=== PATIENT | female | born 1960 | race Caucasian/White ===

== ENCOUNTER → 2016-09-09 | Outpatient (CLI) | payer OTHER | LOC: RAD 11:17 | PROVIDERS: ATTEND Psychiatry & Neurology Neurology | DX: G37.8 Other specified demyelinating diseases of central nervous system (principal) | CPT/HCPCS: 72146 ==

== ENCOUNTER → 2017-01-22 | Outpatient (CLI) | payer OTHER ==
--- NOTE | 2017-01-22 11:09 | WOMENS IMAGING REPORT ---
EXAM DESCRIPTION: RIGHT SCREENING MAMMO W/CAD COMPLETED DATE/TIME: 01/22/2017 10:34 am REASON FOR STUDY: ROUTINE SCREENING Z12.31 ENCNTR SCREEN MAMMOGRAM FOR MALIGNANT NEOPLASM OF JOCE COMPARISON: Annual priors dating back to January 2009. TECHNIQUE: Standard craniocaudal and mediolateral oblique views of the breast recorded using digital acquisition. LIMITATIONS: None. FINDINGS: BREAST: right No masses, calcifications or architectural distortion. No areas of suspicion. Read with the assistance of CAD. .[facility] - R2 Cenova Version 1.3 .[facility] - R2 Cenova Version 1.3 .[facility] - R2 Cenova Version 2.4 .[facility] - R2 Cenova Version 2.4 .[facility] - R2 Roll Edge Machine Operator Version 9.2 IMPRESSION: NORMAL MAMMOGRAM. BIRADS 1. BREAST DENSITY: b. There are scattered areas of fibroglandular density. BIRAD: 1 NEGATIVE RECOMMENDATION: RECOMMENDATION: ROUTINE SCREENING. COMMENT: The patient has been notified of the results by letter per SA requirements. Additional no tification policies are in place for contacting patient with suspicious or incomplete findings. Quality ID #225: The [employer] recommends an annual screening mammogram for women aged 40 years or over. This facility utilizes a reminder system to ensure that all patients receive reminder letters, and/or direct phone calls for appointments. This includes reminders for routine scr eening mammograms, diagnostic mammograms, or other Breast Imaging Interventions when appropriate. Th is patient will be placed in the appropriate reminder system. The [employer] (ACR) has developed recommendations for screening MRI of the breast s in certain patient populations, to be used in conjunction with mammography. Breast MRI surveillance may be appropriate for women with more than 20% lifetime risk of developing breast cancer as determi tam by genetic testing, significant family history of the disease, or history of mantle radiation for Hodgkins Disease. ACR Practice Guidelines 2008. TECHNICAL DOCUMENTATION: FINDING NUMBER: (1) ASSESSMENT: (1) JOB ID: [id number] [employer]- All Rights Reserved
== END ==
LOC: WI 10:16
PROVIDERS: ATTEND Family Medicine
DX: Z12.31 Encounter for screening mammogram for malignant neoplasm of breast (principal)
CPT/HCPCS: G0202-52

== ENCOUNTER → 2017-02-12 | Outpatient (CLI) | payer OTHER ==
--- NOTE | 2017-02-12 13:22 | ST Modified Barium Swallow ---
Medical Diagnoses - Medical Diagnoses Medical Diagnosis Description & ICD-10 Code(s): Dysphagia R13.10 Other Medical Diagnoses/Co-Morbidities: Heart valve replaced, history of breast cancer. ST Modified Barium Swallow - General Date: 02/12/17 Referring Physician: Dr. Miguel Howell Risks/Precautions: Falls, Aspiration Date of Onset: 10/29/16 Reason for Referral: dysphagia R13.10 - History History obtained from: Patient -: Medical - Patient reports swallowing issues began in October. Patient reports would be harder to swallow and getting worse. Reports in last few weeks it feels like something is hung in throat (indicates level of larynx) and that it will be hard to swallow. Patient reports sometimes "I feel like I'm trying to choke" but that most of the time something is just sticking. Does report feeling like "cutting off airway". Reports recently had plate of barbecue and it took an hour & 45 minutes to eat. Patient reports voice has been raspy & hoarse for about a year. Patient reports ENT has determined nothing is wrong with vocal cords. Reports gait has been affected since July. Patient reports has myopathy and physicians are continuing to look at causes. Patient is to have repeat MRI. Medications: Coumadin, diltiazem, baclofen, D-Amphetamine salt combo, Aspirin. Allergies: Codeine, Shrimp, Crestor. - Functional Status Prior Functional Status: INDEPENDENT: community mobility, communication, feeding Current Functional Limitations: community mobility, communication, feeding - Subjective Patient/caregiver goal(s): improve intake, better swallow Cognitive-Linguistic Function: Functional Speech Intelligibility: Moderately dysarthric - hoarse vocal quality Current Nutritional Means: PO - regular diet Current symptoms: Poor intake, c/o Globus sensation, other - slow eating Pain: 0/5 - Objective Assessment: Upright, Left Lateral - Food Trials Used Food trials used: Thin liquids, Pureed, Soft solids The patient: Was Able to Self Feed, via cup, via spoon, via straw - Oral-Motor Skills Dentition: Partial Velo-pharyngeal function: Not assessed - Assessment Oral prep: Mildly Impaired Labial closure: Adequate Leakage: None Mastication: Lengthy Lingual Movement: Weak Oral stage: Mildly Impaired - Pharyngeal Stage Decreased laryngeal elevation: No Reduced Velopharyngeal Closure: no Reduced pressure generation: Yes - mildly reduced tongue-based retraction: Yes - mildly Pre-swallow pooling in valleculae: None Pre-Swallow pooling in pyriforms: None Reduced Thyro-Hyoid approximation: No Reduced epiglottic excursion: No Reduced pharyngeal peristalsis/contraction: No Post-swallow residulas vallecular: None Post-Swallow residuals in pyriforms: None - Esophageal Stage Esophageal Stage: Patient had barium swallow for esophageal assessment after MBSS. - Fall Risk Assessment Medications/Conditions that increase fall risks include: Antidepressants, sedatives, anti-arrhythmic, diuretic, benzodiazipenes, neuroleptics. BP regulation problems, cardiac problems, balance or gait deficits, neurological problems. Is patient considered at risk for falls: yes Fall Risk Actions Taken: Pt physician notified - Behavioral Observations During evaluation process patient: was pleasant, was cooperative, able to answer questions - Treatment / Educational Needs: Treatment/Education Needs: Treatment consisted of patient education on the role of the Speech Pathologist. Patient's plan of care and golas were communicated as well as scheduling and attendance policies. Recommendations for initial home program were shared. Patient demonstrated understanding and verbalized agreement. Initial home program recommendations: patient asked for recommendation regarding fatigue with eating. STAFF NURSE ANESTHETIST recommended that later in day or on bad days when patient struggles to eat & has to eat slower, that she try softer foods that will be easier to eat. STAFF NURSE ANESTHETIST did recommend against thickening liquids at this time as patient does not have any aspiration or penetration and thickener may increase risk of residuals or effort required to swallow. - Impression/Summary Laryngeal Penetration: No Tracheal Aspiration: no Patient presents with: Oral stage dysphagia - mild Risk of Aspiration: Mild - given presentation at time of study Risk of nutritional compromise: Moderate Evaluation and Findings: Swallow is safe and effective, however mild impairments were observed in oral stage for manipulation of bolus and mastication time. Patient reports that these will worsened across day & that some days are worse than others. At this time, recommend patient continue current diet. Patient may wish to eat softer foods that require less chewing when fatigued. Patient may benefit from further speech therapy for education on strategies and strengthening of oral musculature. Physician may wish to wait on speech therapy until further assessments are completed to aid in determining if rehab will be beneficial to patient. - Recommendations Solid diet recommendations: Regular Liquid Diet Modification: Thin Strict aspiration precautions: Yes Pt/Family education and followup with MD: Yes Information, Precautions and Recommendations: Patient (Verbal), Family Member ( Verbal) - Time Total Time: 20 - Plan of Care Strategies to optimize patient understanding include:: ongoing assessment of educational needs, implementation of educational strategies, and re-education. - - -: Thank you for the opportunity to work with this patient and his/her family. Should you have any questions about this patient's plan or progress, I can be reached at [phone]. Charge G Code? - - -: No
--- NOTE | 2017-02-12 16:25 | RADIOLOGY REPORT (SQ) ---
EXAM DESCRIPTION: BARIUM SWALLOW PHARYNX ONLY COMPLETED DATE/TIME: 02/12/2017 2:06 pm REASON FOR STUDY: DYSPHAGIA (R13.10) R13.10 DYSPHAGIA, UNSPECIFIED COMPARISON: None. TECHNIQUE: Under fluoroscopic guidance, patient ingested effervescent granules followed by thick and thin barium. Fluoroscopic spot images and routine radiographic images acquired and stored on PACS. 12 MM BARIUM TABLET GIVEN: Yes. No significant delay in passage. LIMITATIONS: None. FLUOROSCOPY TIME: FLUORO TIME: 42 seconds 9 images saved to PACS. FINDINGS: NEUROMUSCULAR COORDINATION OF SWALLOW: Normal. No aspiration. ESOPHAGEAL MOTILITY: Tertiary contractions mid and distal esophagus. ESOPHAGEAL MUCOSA: Normal mucosa without masses or ulceration. GASTRO-ESOPHAGEAL JUNCTION: Sliding hiatal hernia. No reflux observed. NON-GI TRACT STRUCTURES: No significant finding. OTHER: No other significant finding. IMPRESSION: 1. Sliding hiatal hernia. No stricture. No reflux observed. 2. Dysmotility. COMMENT: Quality ID 145: Final reports for procedures using fluoroscopy that document radiation exp osure indices, or exposure time and number of fluorographic images (if radiation exposure indices are not available) TECHNICAL DOCUMENTATION: JOB ID: [id number] [facility]- All Rights Reserved
--- NOTE | 2017-02-12 16:38 | RADIOLOGY REPORT (SQ) ---
EXAM DESCRIPTION: COOKIE SWALLOW COMPLETED DATE/TIME: 02/12/2017 2:06 pm REASON FOR STUDY: DYSPHAGIA (R13.10) R13.10 DYSPHAGIA, UNSPECIFIED FOOD IN PHARYNX CAUSING OTHER IN JURY, SEQUELA T17.228S COMPARISON: Barium swallow performed same day 02/12/2017 TECHNIQUE: Videofluoroscopic swallowing examination was performed in conjunction with speech patholo gy. Videofluoroscopic imaging was obtained and reviewed and these are the findings: RADIATION DOSE: Total fluoroscopy time: 1 minutes 3 seconds 1 fluoroscopy image saved to PACS. LIMITATIONS: None FINDINGS: The patient was brought into the fluoro room and placed upright on a modified barium swall ow chair. The patient was then given multiple consistencies mixed with barium to swallow under live fluoroscopic video guidance. According to the Speech Pathologist there was no laryngeal penetration and no tracheal aspiration. Mild oral and pharyngeal phase delay noted, with premature spillage over the base of tongue into the vallecula and piriform sinuses prior to swallow initiation. No signific ant post swallow residual seen. Please see speech pathology report for further details and recommend ations. IMPRESSION: NO EVIDENCE OF LARYNGEAL PENETRATION OR TRACHEAL ASPIRATION.PLEASE SEE SPEECH PATHOLOGIS T REPORT FOR OTHER FINDINGS AND RECOMMENDATIONS. COMMENT: Quality ID 145: Final reports for procedures using fluoroscopy that document radiation exp osure indices, or exposure time and number of fluorographic images (if radiation exposure indices are not available) TECHNICAL DOCUMENTATION: JOB ID: [id number] [employer]- All Rights Reserved
== END ==
LOC: RAD 13:02
PROVIDERS: ATTEND Otolaryngology
DX: R13.10 Dysphagia, unspecified (principal)
CPT/HCPCS: 74210; 74230

== ENCOUNTER → 2017-08-12 | Outpatient (CLI) | payer OTHER ==
--- NOTE | 2017-08-13 08:50 | RADIOLOGY REPORT (SQ) ---
EXAM DESCRIPTION: MRI RT LOWER EXTREMITY WITHOUT COMPLETED DATE/TIME: 08/12/2017 5:09 pm REASON FOR STUDY: M62.562 COMPARISON: None. FINDINGS: Please see combined report for the bilateral lower extremity MRI. TECHNICAL DOCUMENTATION: JOB ID: [id number] Reading location - IP/workstation name: [email or web address]
--- NOTE | 2017-08-13 08:50 | RADIOLOGY REPORT (SQ) ---
EXAM DESCRIPTION: MRI LT LOWER EXTREMITY WITHOUT COMPLETED DATE/TIME: 08/12/2017 5:09 pm REASON FOR STUDY: M62.562 MUSCLE WASTING AND ATROPHY, NEC, LEFT LOWER LEG M62.561 MUSCLE WAST M62.56 1 MUSCLE WASTING AND ATROPHY, NEC, RIGHT LOWER LEG M62.562 MUSCLE WASTING AND ATROPHY, NEC, LEFT LO WER LEG COMPARISON: None. TECHNIQUE: Multiplanar imaging of the right and left legs to include fat and fluid sensitive sequenc es. Field of view includes from knee to ankle without high-resolution of either these joints. LIMITATIONS: No technical limitations appreciated. FINDINGS: RIGHT BONE MARROW: No marrow signal alteration. No marrow replacement or marrow edema. No evidence for os teomyelitis, fracture or suspicious bone lesion. SOFT TISSUES: No drainable fluid collections or soft tissue mass. Symmetric volume and signal in the visualized muscles. OTHER: No other significant finding. LEFT BONE MARROW: No marrow signal alteration. No marrow replacement or marrow edema. No evidence for os teomyelitis, fracture or suspicious bone lesion. No cortical break through. SOFT TISSUES: No drainable fluid collections or soft tissue mass. Symmetric volume and signal in the visualized muscles. Mild deep subcutaneous anterior strandy edema and fluid. OTHER: No other significant finding. IMPRESSION: 1. Other than mild left subcutaneous edema, normal MRI appearance of the bilateral legs. No mass or drainable fluid or asymmetry in the musculature. Bones look normal. TECHNICAL DOCUMENTATION: JOB ID: [id number] [employer]- All Rights Reserved Reading location - IP/workstation name: [email or web address]
== END ==
LOC: RAD 15:51
PROVIDERS: ATTEND Family Medicine
DX: M62.562 Muscle wasting and atrophy, not elsewhere classified, left lower leg (principal); M62.561 Muscle wasting and atrophy, not elsewhere classified, right lower leg

== ENCOUNTER → 2017-12-03 | Outpatient (CLI) | payer OTHER ==
[2017-12-03 13:59] LABS: ABSOLUTE BASOPHILS # (AUTO) 0.1 10^3/uL (0.0-0.2); ABSOLUTE EOSINOPHILS # (AUTO) 0.1 10^3/uL (0.0-0.6); ABSOLUTE LYMPHOCYTES (AUTO) 2.2 10^3/uL (0.5-4.7); ABSOLUTE MONOCYTES (AUTO) 0.5 10^3/uL (0.1-1.4); ABSOLUTE NEUT (AUTO) 4.2 10^3/uL (1.7-8.2); BASOPHILS % (AUTO) 0.8 % (0-2); EOSINOPHILS % (AUTO) 1.8 % (0-6); HEMATOCRIT 43.4 % (36.0-47.0); HEMOGLOBIN 14.9 g/dL (12.0-15.5); LYMPHOCYTES % (AUTO) 31.4 % (13-45); MEAN CORPUSCULAR HGB CONC 34.2 g/dL (32.0-36.0); MEAN CORPUSCULAR VOLUME 88 fl (80-97); MONOCYTES % (AUTO) 6.6 % (3-13); PLATELET COUNT 256 10^3/uL (150-450); RED BLOOD COUNT 4.95 10^6/uL (3.72-5.28); RED CELL DISTRIBUTION WIDTH 14.1 % (11.5-14.0); SEGMENTED NEUTROPHILS % (AUTO) 59.4 % (42-78); TOTAL CELLS COUNTED % (AUTO) 100 %; WHITE BLOOD COUNT 7.1 10^3/uL (4.0-10.5)
[2017-12-03 14:22] LABS: ALANINE AMINOTRANSFERASE 47 U/L (9-52); ALBUMIN 4.2 g/dL (3.5-5.0); ALKALINE PHOSPHATASE 103 U/L (38-126); ANION GAP 10 (5-19); ASPARTATE AMINO TRANSFERASE 43 U/L (14-36); BILIRUBIN,DIRECT 0.3 mg/dL (0.0-0.4); BILIRUBIN,TOTAL 0.3 mg/dL (0.2-1.3); BLOOD UREA NITROGEN 15 mg/dL (7-20); CALCIUM 9.2 mg/dL (8.4-10.2); CARBON DIOXIDE 27 mmol/L (22-30); CHLORIDE 105 mmol/L (98-107); GLUCOSE 95 mg/dL (75-110); POTASSIUM 4.7 mmol/L (3.6-5.0); TOTAL PROTEIN 6.9 g/dL (6.3-8.2)
--- NOTE | 2017-12-03 15:08 | RADIOLOGY REPORT (SQ) ---
EXAM DESCRIPTION: CHEST 2 VIEWS COMPLETED DATE/TIME: 12/03/2017 2:02 pm REASON FOR STUDY: COUGH (R05) COMPARISON: Chest films 08/22/2012, 01/14/2013, 03/21/2013 EXAM PARAMETERS: NUMBER OF VIEWS: two views TECHNIQUE: Digital Frontal and Lateral radiographic views of the chest acquired. RADIATION DOSE: NA LIMITATIONS: none FINDINGS: LUNGS AND PLEURA: No opacities, masses or pneumothorax. No pleural effusion. MEDIASTINUM AND HILAR STRUCTURES: No masses or contour abnormalities. HEART AND VASCULAR STRUCTURES: Heart normal size. No evidence for failure. BONES: Osteoporotic HARDWARE: Mitral valve replacement. Surgical clips in the anterior mediastinum, left axilla, anterio r abdominal wall. Clips right upper quadrant post cholecystectomy. OTHER: No other significant finding. IMPRESSION: Mitral valve replacement. No acute infiltrates. TECHNICAL DOCUMENTATION: JOB ID: [id number] [employer]- All Rights Reserved Reading location - IP/workstation name: [email or web address]
== END ==
LOC: RAD 13:17
PROVIDERS: ATTEND Family Medicine
DX: R05 Cough (principal); R19.7 Diarrhea, unspecified; Z95.2 Presence of prosthetic heart valve
CPT/HCPCS: 36415; 71046; 80053; 85025; 87045; 87177; 87205

== ENCOUNTER → 2018-01-07 | Outpatient (CLI) | payer OTHER ==
--- NOTE | 2018-01-07 13:20 | RADIOLOGY REPORT (SQ) ---
EXAM DESCRIPTION: CT ABD/PELVIS WITH IV ORAL COMPLETED DATE/TIME: 01/07/2018 11:03 am REASON FOR STUDY: RECTAL BLEEDING/NAUSEA W/ VOMITING K62.5 HEMORRHAGE OF ANUS AND RECTUM R11.2 RONNY SEA WITH VOMITING, UNSPECIFIED K21.9 GASTRO-ESOPHAGEAL REFLUX DISEASE WITHOUT ESOPHAGITIS COMPARISON: None. TECHNIQUE: CT scan of the abdomen and pelvis performed using helical scanning technique with oral co ntrast and dynamic intravenous contrast injection. Images reviewed with lung, soft tissue, and bone windows. Reconstructed coronal and sagittal MPR images reviewed. Delayed images for evaluation of the urinary system also acquired. All images stored on PACS. All CT scanners at this facility use dose modulation, iterative reconstruction, and/or weight based d osing when appropriate to reduce radiation dose to as low as reasonably achievable (ALARA). [facility]: Dose Right [facility]: CareDose [facility]: Dose Right [facility]: Teradose 4D [facility]: [employer] CONTRAST TYPE AND DOSE: contrast/concentration: Isovue 350.00 mg/ml; Total Contrast Delivered: 83.0 ml; Total Saline Delivered: 68.0 ml RENAL FUNCTION: Creatinine 0.6. RADIATION DOSE: CT Rad equipment meets quality standard of care and radiation dose reduction techniq ues were employed. CTDIvol: 8.6 - 9.7 mGy. DLP: 931 mGy-cm.. LIMITATIONS: None. FINDINGS: LOWER CHEST: No significant findings. No nodules or infiltrates. LIVER: Normal size. No masses. No dilated ducts. SPLEEN: Normal size. No focal lesions. PANCREAS: No masses. No significant calcifications. No adjacent inflammation or peripancreatic fluid collections. Pancreatic duct not dilated. GALLBLADDER: Surgically absent. ADRENAL GLANDS: No significant masses or asymmetry. RIGHT KIDNEY AND URETER: No solid masses. No significant calcifications. No hydronephrosis or hyd roureter. LEFT KIDNEY AND URETER: No solid masses. No significant calcifications. No hydronephrosis or hydr oureter. AORTA AND VESSELS: No aneurysm. No dissection. Renal arteries, SMA, celiac without stenosis. RETROPERITONEUM: No retroperitoneal adenopathy, hemorrhage or masses. BOWEL AND PERITONEAL CAVITY: Suboptimal evaluation of the stomach due to lack of distention. Scatter ed diverticuli in the descending and sigmoid colon. No masses or inflammatory changes. No free fluid or peritoneal masses. APPENDIX: Normal. PELVIS: No mass. No free fluid. Normal bladder. ABDOMINAL WALL: No masses. No hernias. Surgical changes on the left secondary to TRAM flap. BONES: No significant or acute findings. OTHER: No other significant finding. IMPRESSION: COLONIC DIVERTICULOSIS. NO CT FINDINGS OF DIVERTICULITIS. NO OTHER SIGNIFICANT OR ACUT E FINDING IN THE ABDOMEN OR PELVIS ON CT SCAN WITH IV CONTRAST. TECHNICAL DOCUMENTATION: JOB ID: [id number] Quality ID # 436: Final reports with documentation of one or more dose reduction techniques (e.g., Au tomated exposure control, adjustment of the mA and/or kV according to patient size, use of iterative reconstruction technique) 2010 [employer]- All Rights Reserved Reading location - IP/workstation name: [email or web address]
== END ==
LOC: RAD 10:18
PROVIDERS: ATTEND Internal Medicine Gastroenterology
DX: K62.5 Hemorrhage of anus and rectum (principal); R11.2 Nausea with vomiting, unspecified; K21.9 Gastro-esophageal reflux disease without esophagitis; K59.1 Functional diarrhea; K57.30 Diverticulosis of large intestine without perforation or abscess without bleeding
CPT/HCPCS: 74177; 82565

== ENCOUNTER → 2018-04-25 | Outpatient (CLI) | payer OTHER ==
[2018-04-25 14:02] LABS: ABSOLUTE BASOPHILS # (AUTO) 0.1 10^3/uL (0.0-0.2); ABSOLUTE EOSINOPHILS # (AUTO) 0.1 10^3/uL (0.0-0.6); ABSOLUTE LYMPHOCYTES (AUTO) 2.1 10^3/uL (0.5-4.7); ABSOLUTE MONOCYTES (AUTO) 0.5 10^3/uL (0.1-1.4); ABSOLUTE NEUT (AUTO) 4.1 10^3/uL (1.7-8.2); BASOPHILS % (AUTO) 0.8 % (0-2); EOSINOPHILS % (AUTO) 0.9 % (0-6); HEMATOCRIT 44.3 % (36.0-47.0); HEMOGLOBIN 15.3 g/dL (12.0-15.5); LYMPHOCYTES % (AUTO) 31.7 % (13-45); MEAN CORPUSCULAR HEMOGLOBIN 30.6 pg (27.0-33.4); MEAN CORPUSCULAR HGB CONC 34.6 g/dL (32.0-36.0); MEAN CORPUSCULAR VOLUME 89 fl (80-97); MONOCYTES % (AUTO) 6.7 % (3-13); PLATELET COUNT 239 10^3/uL (150-450); RED CELL DISTRIBUTION WIDTH 14.4 % (11.5-14.0); SEGMENTED NEUTROPHILS % (AUTO) 59.9 % (42-78); TOTAL CELLS COUNTED % (AUTO) 100 %; WHITE BLOOD COUNT 6.8 10^3/uL (4.0-10.5)
[2018-04-25 14:20] LABS: ALANINE AMINOTRANSFERASE 27 U/L (9-52); ALBUMIN 4.3 g/dL (3.5-5.0); ALKALINE PHOSPHATASE 90 U/L (38-126); ANION GAP 10 (5-19); ASPARTATE AMINO TRANSFERASE 28 U/L (14-36); BILIRUBIN,DIRECT 0.3 mg/dL (0.0-0.4); BILIRUBIN,TOTAL 0.6 mg/dL (0.2-1.3); BLOOD UREA NITROGEN 9 mg/dL (7-20); CALCIUM 9.9 mg/dL (8.4-10.2); CARBON DIOXIDE 32 mmol/L (22-30); CHLORIDE 102 mmol/L (98-107); GLUCOSE 63 mg/dL (75-110); POTASSIUM 4.1 mmol/L (3.6-5.0); SODIUM 144.1 mmol/L (137-145); TOTAL PROTEIN 7.1 g/dL (6.3-8.2)
== END ==
LOC: OD 12:39
PROVIDERS: ATTEND Family Medicine
DX: E83.42 Hypomagnesemia (principal); E53.9 Vitamin B deficiency, unspecified; Z79.01 Long term (current) use of anticoagulants; Z79.899 Other long term (current) drug therapy
CPT/HCPCS: 36415; 80053; 82607; 83735; 85025

== ENCOUNTER → 2018-10-06 | Outpatient (CLI) | payer OTHER ==
--- NOTE | 2018-10-06 08:33 | WOMENS IMAGING REPORT ---
EXAM DESCRIPTION: U/S ABDOMEN LIMITED COMPLETED DATE/TIME: 10/06/2018 7:42 am REASON FOR STUDY: R10.10 UPPER ABDOMINAL PAIN R10.10 UPPER ABDOMINAL PAIN, UNSPECIFIED COMPARISON: CT abdomen pelvis 01/07/2018 TECHNIQUE: Dynamic and static grayscale images acquired of the abdomen and recorded on PACS. Additio nal selected color Doppler and spectral images recorded. LIMITATIONS: Midline bowel gas FINDINGS: PANCREAS: Midline pancreas unremarkable LIVER: No masses. Echotexture normal. LIVER VASCULATURE: Normal directional flow of the main portal vein and hepatic veins. GALLBLADDER: No stones. Normal wall thickness. No pericholecystic fluid. ULTRASOUND-DETECTED MARK'S SIGN: Negative. INTRAHEPATIC DUCTS AND COMMON DUCT: No intrahepatic biliary ductal dilatation. Common bile duct at t he jamal hepatis is 10 mm in diameter. Distal most common duct not well seen due to duodenum gas. C holedocholithiasis could not entirely be excluded. INFERIOR VENA CAVA: Normal flow. AORTA: No aneurysm. RIGHT KIDNEY: Normal size. Normal echogenicity. No solid or suspicious masses. No hydronephrosis. No calcifications. PERITONEAL AND RIGHT PLEURAL SPACE: No ascites or effusions. OTHER: No other significant findings. IMPRESSION: Post cholecystectomy Mild prominence of the extrahepatic common bile duct likely due to cholecystectomy. Distal most comm on duct not well seen. Distal common duct stones could not entirely be excluded TECHNICAL DOCUMENTATION: JOB ID: [id number] [employer]- All Rights Reserved Reading location - IP/workstation name: [email or web address]
== END ==
LOC: WI 07:03
PROVIDERS: ATTEND Family Medicine
DX: R10.10 Upper abdominal pain, unspecified (principal)
CPT/HCPCS: 76705

== ENCOUNTER → 2019-02-15 | Outpatient (CLI) | payer OTHER ==
--- NOTE | 2019-02-15 17:09 | WOMENS IMAGING REPORT ---
EXAM DESCRIPTION: 3D SCREENING MAMMO RIGHT COMPLETED DATE/TIME: 02/15/2019 8:36 am REASON FOR STUDY: Z12.31 ENCOUNTER FOR SCREENING MAMMOGRAM FOR MALIGNANT NEOPLASM OF BREAST Z12.31 ENCNTR SCREEN MAMMOGRAM FOR MALIGNANT NEOPLASM OF JOCE COMPARISON: Multiple since 2008 EXAM PARAMETERS: Standard craniocaudal and mediolateral oblique views of the breast recorded using d igital acquisition and breast tomosynthesis. Read with the assistance of CAD. .[facility] - [employer] Hearing Consultant Version 9.2 LIMITATIONS: None. FINDINGS: BREAST LATERALITY: right No suspicious masses, suspicious calcifications or architectural distortion. No areas of concern. IMPRESSION: NEGATIVE MAMMOGRAM. BIRADS 1. BREAST DENSITY: c. The breasts are heterogeneously dense, which may obscure small masses. BIRAD: ASSESSMENT: 1 Negative RECOMMENDATION: RECOMMENDATION: ROUTINE SCREENING. COMMENT: The patient has been notified of the results by letter per MQSA requirements. Additional no tification policies are in place for contacting patient with suspicious or incomplete findings. Quality ID #225: The [employer] recommends an annual screening mammogram for women aged 40 years or over. This facility utilizes a reminder system to ensure that all patients receive reminder letters, and/or direct phone calls for appointments. This includes reminders for routine scr eening mammograms, diagnostic mammograms, or other Breast Imaging Interventions when appropriate. Th is patient will be placed in the appropriate reminder system. TECHNICAL DOCUMENTATION: FINDING NUMBER: (1) ASSESSMENT: (1) JOB ID: [id number] [employer]- All Rights Reserved Reading location - IP/workstation name: [email or web address]
== END ==
LOC: WI 07:20
PROVIDERS: ATTEND Family Medicine
DX: Z12.31 Encounter for screening mammogram for malignant neoplasm of breast (principal)

== ENCOUNTER → 2019-02-24 | Outpatient (CLI) | payer OTHER ==
--- NOTE | 2019-02-24 09:07 | RADIOLOGY REPORT (SQ) ---
EXAM DESCRIPTION: CT CHEST WITHOUT COMPLETED DATE/TIME: 02/24/2019 8:20 am REASON FOR STUDY: SOLITARY PULMONARY NODULE (R91.1) R91.1 SOLITARY PULMONARY NODULE COMPARISON: CT chest 05/01/2010 Right upper quadrant ultrasound 10/06/2018, CT abdomen pelvis 01/07/2018 TECHNIQUE: CT scan performed of the chest without intravenous contrast. Images reviewed with lung, soft tissue and bone windows. Reconstructed coronal and sagittal MPR images reviewed. All images st ored on PACS. All CT scanners at this facility use dose modulation, iterative reconstruction, and/or weight based d osing when appropriate to reduce radiation dose to as low as reasonably achievable (ALARA). [facility]: Dose Right [facility]: CareDose [facility]: Dose Right [facility]: Teradose 4D [facility]: [employer] RADIATION DOSE: CT Rad equipment meets quality standard of care and radiation dose reduction techniq ues were employed. CTDIvol: 4.9 mGy. DLP: 183 mGy-cm. mGy. LIMITATIONS: No technical limitations. FINDINGS: LUNGS AND PLEURA: No masses, infiltrates, or pneumothorax. No pleural effusions or pleura l calcifications. HILAR AND MEDIASTINAL STRUCTURES: No identified masses or abnormal nodes. No obvious aneurysm. HEART AND VASCULAR STRUCTURES: No aneurysm. No pericardial effusion. Post limited sternotomy for mi tral valve replacement. No cardiomegaly or pericardial effusion UPPER ABDOMEN: Clips post cholecystectomy THYROID AND OTHER SOFT TISSUES: Post left mastectomy and axillary dissection with tram flap reconstru ction of the left breast BONES: Chronic appearing minimal central upper endplate L1 depression, new since CT in 2009. HARDWARE: Mitral valve OTHER: No other significant findings. IMPRESSION: NO SIGNIFICANT FINDING ON NON-CONTRASTED CHEST CT. TECHNICAL DOCUMENTATION: JOB ID: [id number] Quality ID # [id number]: Final reports with documentation of one or more dose reduction techniques (e.g., Au tomated exposure control, adjustment of the mA and/or kV according to patient size, use of iterative reconstruction technique) 2010 [employer]- All Rights Reserved Reading location - IP/workstation name: [email or web address]
== END ==
LOC: RAD 08:04
PROVIDERS: ATTEND Family Medicine
DX: R91.1 Solitary pulmonary nodule (principal)
CPT/HCPCS: 71250

== ENCOUNTER 2019-04-27 00:55 | Emergency (ER) | payer OTHER ==
[2019-04-27 02:56] LABS: ABSOLUTE EOSINOPHILS # (AUTO) 0.1 10^3/uL (0.0-0.6); ABSOLUTE MONOCYTES (AUTO) 0.7 10^3/uL (0.1-1.4); ABSOLUTE NEUT (AUTO) 4.8 10^3/uL (1.7-8.2); BASOPHILS % (AUTO) 0.2 % (0-2); EOSINOPHILS % (AUTO) 1.7 % (0-6); HEMATOCRIT 42.4 % (36.0-47.0); HEMOGLOBIN 14.3 g/dL (12.0-15.5); LYMPHOCYTES % (AUTO) 26.3 % (13-45); MEAN CORPUSCULAR HEMOGLOBIN 30.1 pg (27.0-33.4); MEAN CORPUSCULAR HGB CONC 33.8 g/dL (32.0-36.0); MEAN CORPUSCULAR VOLUME 89 fl (80-97); MONOCYTES % (AUTO) 9.4 % (3-13); PLATELET COUNT 213 10^3/uL (150-450); RED BLOOD COUNT 4.76 10^6/uL (3.72-5.28); RED CELL DISTRIBUTION WIDTH 13.8 % (11.5-14.0); SEGMENTED NEUTROPHILS % (AUTO) 62.4 % (42-78); TOTAL CELLS COUNTED % (AUTO) 100 %; WHITE BLOOD COUNT 7.7 10^3/uL (4.0-10.5)
[2019-04-27 03:18] LABS: ALBUMIN 4.1 g/dL (3.5-5.0); ALKALINE PHOSPHATASE 94 U/L (38-126); ANION GAP 11 (5-19); ASPARTATE AMINO TRANSFERASE 30 U/L (14-36); BILIRUBIN,DIRECT 0.1 mg/dL (0.0-0.4); BILIRUBIN,TOTAL 0.5 mg/dL (0.2-1.3); BLOOD UREA NITROGEN 10 mg/dL (7-20); CALCIUM 9.5 mg/dL (8.4-10.2); CARBON DIOXIDE 29 mmol/L (22-30); CHLORIDE 99 mmol/L (98-107); CREATINE KINASE 191 U/L (30-135); GLUCOSE 94 mg/dL (75-110); TOTAL PROTEIN 6.7 g/dL (6.3-8.2)
[2019-04-27 03:29] LABS: CREATINE KINASE MB 1.42 ng/mL (<4.55); TROPONIN I < 0.012 ng/mL
--- NOTE | 2019-04-27 04:06 | RADIOLOGY REPORT (SQ) ---
EXAM DESCRIPTION: XR CHEST 2 VIEWS COMPLETED DATE/TME: 04/27/2019 03:18 CLINICAL HISTORY: chest pain COMPARISON: 12/03/2017 FINDINGS: Frontal and lateral views of the chest. Cardiomediastinal silhouette: Atherosclerotic calcification of the thoracic aorta. Postoperative change of the mediastinum. Prior valve repair. Lungs: No consolidation, pneumothorax, or pleural effusion. Bones: No acute osseous abnormality. Postoperative change in the left axillary region. Upper abdomen: Postoperative change in the upper abdomen. IMPRESSION: 1. No acute pulmonary process identified.
[2019-04-27] MEDS ORDERED: POTASSIUM CHLORIDE 10 MEQ TABLET.ER PO ONE (06:23)
--- NOTE | 2019-04-27 06:42 | ER Document Report ---
ED Cardiac - General Chief Complaint: Chest Pain Stated Complaint: CHEST PAIN Time Seen by Provider: 04/27/19 03:18 Primary Care Provider: HILDA HUBBARD MD [Primary Care Provider] - Follow up as needed Mode of Arrival: Ambulatory Information source: Patient Notes: Patient is a 58-year-old female with intermittent chest pain over the last few weeks. She states today she was doing a lot of yard work and housework and developed chest pain with an irregular heart rate. She states that she was getting out of breath. She has had a negative cardiac cath this year. She currently denies any chest pain. TRAVEL OUTSIDE OF THE [place] IN LAST 30 DAYS: No - Related Data Allergies/Adverse Reactions: codeine [Codeine] Allergy (Verified 08/22/12 20:45) shrimp Allergy (Uncoded 05/09/13 23:54) Home Medications: blood thiner Past Medical History - General Information source: Patient - Social History Smoking Status: Current Every Day Smoker Frequency of alcohol use: None Drug Abuse: None Family History: Reviewed & Not Pertinent Patient has suicidal ideation: No Patient has homicidal ideation: No - Past Medical History Cardiac Medical History: Reports: Hx Atrial Fibrillation, Hx Hypercholesterolemia, Hx Hypertension Endocrine Medical History: Reports: Hx Hypothyroidism Malignancy Medical History: Reports: Hx Breast Cancer - left Musculoskeletal Medical History: Reports Hx Musculoskeletal Trauma Traumatic Medical History: Reports: Hx Fractures Past Surgical History: Reports: Hx Breast Surgery - mystectomy and blood vessel replaced, Hx Cholecystectomy - Immunizations Immunizations up to date: Yes Hx Diphtheria, Pertussis, Tetanus Vaccination: Yes Review of Systems - Review of Systems Constitutional: No symptoms reported EENT: No symptoms reported Cardiovascular: See HPI Respiratory: No symptoms reported Gastrointestinal: No symptoms reported Genitourinary: No symptoms reported Female Genitourinary: No symptoms reported Musculoskeletal: No symptoms reported Skin: No symptoms reported Hematologic/Lymphatic: No symptoms reported Neurological/Psychological: No symptoms reported Physical Exam - Vital signs Vitals: Temp Pulse Resp BP Pulse Ox 98.1 F 106 H 16 153/100 H 97 04/27/19 01:06 04/27/19 01:06 04/27/19 01:06 04/27/19 01:06 04/27/19 01:06 - Notes Notes: PHYSICAL EXAMINATION: GENERAL: Well-appearing, well-nourished and in no acute distress. HEAD: Atraumatic, normocephalic. EYES: Pupils equal round and reactive to light, extraocular movements intact, conjunctiva are normal. ENT: Nares patent, oropharynx clear without exudates. Moist mucous membranes. NECK: Normal range of motion, supple without lymphadenopathy LUNGS: Breath sounds clear to auscultation bilaterally and equal. No wheezes rales or rhonchi. HEART: Regular rate and rhythm without murmurs ABDOMEN: Soft, nontender, nondistended abdomen. No guarding, no rebound. No masses appreciated. Female : deferred Musculoskeletal: Normal range of motion, no pitting or edema. No cyanosis. Pain with palpation over the right chest wall. NEUROLOGICAL: Cranial nerves grossly intact. Normal speech, normal gait. Normal sensory, motor exams PSYCH: Normal mood, normal affect. SKIN: Warm, Dry, normal turgor, no rashes or lesions noted. Course - Re-evaluation Re-evalutation: Laboratory 04/27/19 04/27/19 04/27/19 02:48 02:48 02:48 WBC 7.7 RBC 4.76 Hgb 14.3 Hct 42.4 MCV 89 MCH 30.1 MCHC 33.8 RDW 13.8 Plt Count 213 Lymph % (Auto) 26.3 Hamlin % (Auto) 9.4 Eos % (Auto) 1.7 Baso % (Auto) 0.2 Absolute Neuts (auto) 4.8 Absolute Lymphs (auto) 2.0 Absolute Monos (auto) 0.7 Absolute Eos (auto) 0.1 Absolute Basos (auto) 0.0 Seg Neutrophils % 62.4 Sodium 138.7 Potassium 3.0 L* Chloride 99 Carbon Dioxide 29 Anion Gap 11 BUN 10 Creatinine 0.75 Est GFR ( Amer) > 60 Est GFR (MDRD) Non-Af > 60 Glucose 94 Calcium 9.5 Total Bilirubin 0.5 Direct Bilirubin 0.1 Neonat Total Bilirubin Not Reportable Neonat Direct Bilirubin Not Reportable Neonat Indirect Bili Not Reportable AST 30 ALT 19 Alkaline Phosphatase 94 Creatine Kinase 191 H CK-MB (CK-2) 1.42 Troponin I < 0.012 Total Protein 6.7 Albumin 4.1 04/27/19 05:58 WBC RBC Hgb Hct MCV MCH MCHC RDW Plt Count Lymph % (Auto) Hamlin % (Auto) Eos % (Auto) Baso % (Auto) Absolute Neuts (auto) Absolute Lymphs (auto) Absolute Monos (auto) Absolute Eos (auto) Absolute Basos (auto) Seg Neutrophils % Sodium Potassium Chloride Carbon Dioxide Anion Gap BUN Creatinine Est GFR ( Amer) Est GFR (MDRD) Non-Af Glucose Calcium Total Bilirubin Direct Bilirubin Neonat Total Bilirubin Neonat Direct Bilirubin Neonat Indirect Bili AST ALT Alkaline Phosphatase Creatine Kinase CK-MB (CK-2) Troponin I < 0.012 Total Protein Albumin Chest X-Ray 04/27/19 03:18 IMPRESSION: 1. No acute pulmonary process identified. EKG shows a sinus rhythm, rate of 90, QTc 475, no obvious ST elevations to suggest ischemia. EKG was compared with previous on file, no change. Patient has not had any chest pain while in the emergency department. She has had 2- troponins. She will follow-up with her rv detailer for consideration of further work-up. ED return precautions discussed, patient verbalized understanding and agreement with same. - Vital Signs Vital signs: Temp Pulse Resp BP Pulse Ox 98.1 F 81 17 112/63 98 04/27/19 08:50 04/27/19 08:50 04/27/19 08:50 04/27/19 08:50 04/27/19 08:50 - Laboratory Result Diagrams: 04/27/19 02:48 04/27/19 02:48 Laboratory results interpreted by me: 04/27/19 02:48 Potassium 3.0 L* Creatine Kinase 191 H Discharge - Discharge Clinical Impression: Intercostal muscle pain Chest pain Qualifiers: Chest pain type: unspecified Qualified Code(s): R07.9 - Chest pain, unspecified Condition: Stable Disposition: HOME, SELF-CARE Additional Instructions: You were seen today for chest pain. The exact cause of your pain is unclear. However, based on your cardiac enzyme testing, chest x-ray, and EKG it does not appear that it is from an immediately life-threatening cause at this time. Please continue taking [id number] pain medication, use the lidocaine patches that I have prescribed. Call your primary care provider and schedule a follow-up appointment for next week. Return to the emergency department for any new or worsening symptoms. Prescriptions: Lidocaine [Lidoderm 5% (700 mg) Transdermal Patch] 1 patch TP DAILY #30 adh..patch Referrals: HILDA HUBBARD MD [Primary Care Provider] - Follow up as needed
[2019-04-27 08:55] VITALS: BP 112/63
--- NOTE | 2019-04-28 12:18 | EKG REPORT ---
SEVERITY:- ABNORMAL ECG - SINUS RHYTHM BORDERLINE INFERIOR Q WAVES ABNORMAL T, CONSIDER ISCHEMIA, ANTERIOR LEADS : Confirmed by: Sheela Aponte 28-Apr-2019 12:17:30
== END 2019-04-27 08:50 | disposition home or self-care (01) ==
LOC: ER 00:55
DX: R07.82 Intercostal pain (principal); R07.9 Chest pain, unspecified; R00.2 Palpitations; F17.200 Nicotine dependence, unspecified, uncomplicated; I10 Essential (primary) hypertension
CPT/HCPCS: 36415; 71046; 80053; 82550; 82553; 84484; 85025; 93005; 93010; 99285

== ENCOUNTER → 2019-05-13 | Outpatient (CLI) | payer OTHER ==
--- NOTE | 2019-05-14 09:54 | RADIOLOGY REPORT (SQ) ---
EXAM DESCRIPTION: MRI THORACIC SPINE COMBO COMPLETED DATE/TIME: 05/13/2019 4:40 pm REASON FOR STUDY: M54.14 RADICULOPATHY R74.0 NONSPEC ELEV OF LEVELS OF TRANSAMNS LACTIC ACID DEHY M54.14 RADICULOPATHY, THORACIC REGION COMPARISON: 2017 TECHNIQUE: Sagittal and Axial imaging includes T1, T2, STIR and gradient echo sequences. T1 post ga dolinium sequences. CONTRAST TYPE AND DOSE: 15 mL Dotarem. RENAL FUNCTION: Not indicated. ACR Type II contrast agent associated with few, if any, unconfounded cases of NSF LIMITATIONS: None. FINDINGS: LOCALIZER: No worrisome findings. ALIGNMENT: Normal. VERTEBRAE: Mild compression fractures at T6 and T7. No retropulsion. Particularly evident on T2 sta ndard sequences are subtle endplate fracture lines superiorly. Associated diffuse marrow edema. No other acute fracture. Chronic appearing upper endplate T12 fracture. BONE MARROW: As above. Otherwise normal. HARDWARE: None in the spine. CORD: Normal in size and signal intensity. SOFT TISSUES: No soft tissue masses. THORACIC DISCS T1-T12: No large disc bulges or hernias. LOWER CERVICAL: Incompletely imaged. No significant spinal stenosis or exit foraminal stenosis. UPPER LUMBAR: Incompletely imaged. No significant spinal stenosis or exit foraminal stenosis. ENHANCEMENT: No unexpected enhancement. OTHER: No other significant finding. IMPRESSION: 1. Mild compression fractures at T6 and T7 without retropulsion. 2. No cord compression or significant spinal stenosis is appreciated. No large disc bulges or hernia s. TECHNICAL DOCUMENTATION: JOB ID: [id number] [employer]- All Rights Reserved Reading location - IP/workstation name: [email or web address]
--- NOTE | 2019-05-16 09:39 | RADIOLOGY REPORT (SQ) ---
EXAM DESCRIPTION: MRI ABDOMEN WITH COMPLETED DATE/TIME: 05/13/2019 4:40 pm REASON FOR STUDY: M54.14 RADICULOPATHY 74.0 NONSPECIFIC ELEVATION OF TRANSAMINASE AND LACTIC R74.0 NONSPEC ELEV OF LEVELS OF TRANSAMNS LACTIC ACID DEHY M54.14 RADICULOPATHY, THORACIC REGION COMPARISON: CT abdomen and pelvis dated 01/07/2018 TECHNIQUE: Multiplanar multisequence imaging performed with contrast including sagittal, axial and c oronal T2, axial T1, axial gradient fat sat T1, axial, sagittal and coronal fat sat T1 post contrast. Precontrast images were not obtained. The patient has a hard bowel which limits scan tiny and a 25 minutes. The ordering physician requested contrast MRI of the abdomen only. CONTRAST TYPE AND DOSE: 15 mL Dotarem. RENAL FUNCTION: Not indicated. ACR Type II contrast agent associated with few, if any, unconfounded cases of NSF LIMITATIONS: None. FINDINGS: LIVER: Normal size. No masses. No dilated ducts. CBD normal. SPLEEN: Normal size. No focal lesions. PANCREAS: No masses. No adjacent inflammation or peripancreatic fluid collections. Pancreatic duct no t dilated. GALLBLADDER: No masses. No stones. No gallbladder wall thickening or pericholecystic fluid. ADRENAL GLANDS: No significant masses or asymmetry. RIGHT KIDNEY AND URETER: No masses. No hydronephrosis. LEFT KIDNEY AND URETER: No masses. No hydronephrosis. AORTA AND VESSELS: No aneurysm. No dissection. Renal arteries, SMA, celiac without stenosis. RETROPERITONEUM: No retroperitoneal adenopathy, hemorrhage or masses. BOWEL: Visualized GI tract unremarkable. ABDOMINAL WALL AND PERITONEUM: No hernias. No free fluid. BONES: No acute or significant findings. OTHER: Basilar airspace disease is noted most likely atelectasis. IMPRESSION: Limited evaluation. No acute intra-abdominal abnormalities. TECHNICAL DOCUMENTATION: JOB ID: [id number] [employer]- All Rights Reserved Reading location - IP/workstation name: [email or web address]
== END ==
LOC: RAD 15:01
PROVIDERS: ATTEND Family Medicine
DX: M54.14 Radiculopathy, thoracic region (principal); R74.0 Nonspecific elevation of levels of transaminase and lactic acid dehydrogenase [LDH]; M48.54XD Collapsed vertebra, not elsewhere classified, thoracic region, subsequent encounter for fracture with routine healing
CPT/HCPCS: 72157; 74182; A9576

== ENCOUNTER → 2019-05-18 | Outpatient (CLI) | payer OTHER ==
[2019-05-18 16:28] LABS: INTERNATIONAL RATION (INR) 2.94; PROTHROMBIN TIME 31.3 SEC (11.4-15.4)
== END ==
LOC: OD 15:09
PROVIDERS: ATTEND Family Medicine
DX: Z01.812 Encounter for preprocedural laboratory examination (principal); Z51.81 Encounter for therapeutic drug level monitoring; Z79.01 Long term (current) use of anticoagulants
CPT/HCPCS: 36415; 85610

== ENCOUNTER → 2019-05-20 | Emergency (ER) | payer OTHER ==
[~2019-05-20] MED LIST: ENOXAPARIN SODIUM INJ 80 MG/0.8 ML DISP.SYRIN SUBCUT ONE; HEPARIN SOD (PORCINE) 1,000 UNIT/ML 10 ML VIAL IV PRN; HEPARIN SODIUM,PORCINE/D5W 25,000 UNIT/250 ML RTUINJ IV PRN; MORPHINE SULFATE 10 MG/ML INJ IV ONE; ONDANSETRON HCL INJ/PF 4 MG/2 ML SDV IV ONE
[2019-05-20 01:21] LABS: APPEARANCE,URINE CLEAR; BILIRUBIN,URINE NEGATIVE (NEGATIVE); COLOR,URINE YELLOW; GLUCOSE, URINE NEGATIVE (NEGATIVE); KETONES,URINE NEGATIVE (NEGATIVE); LEUKOCYTE ESTERASE,URINE NEGATIVE (NEGATIVE); NITRITE,URINE NEGATIVE (NEGATIVE); PROTEIN,URINE NEGATIVE (NEGATIVE); URINE SPECIFIC GRAVITY 1.019
[2019-05-20 01:22] LABS: ABSOLUTE BASOPHILS # (AUTO) 0.1 10^3/uL (0.0-0.2); ABSOLUTE EOSINOPHILS # (AUTO) 0.2 10^3/uL (0.0-0.6); ABSOLUTE LYMPHOCYTES (AUTO) 1.9 10^3/uL (0.5-4.7); ABSOLUTE MONOCYTES (AUTO) 0.6 10^3/uL (0.1-1.4); ABSOLUTE NEUT (AUTO) 5.1 10^3/uL (1.7-8.2); BASOPHILS % (AUTO) 0.8 % (0-2); EOSINOPHILS % (AUTO) 2.4 % (0-6); HEMOGLOBIN 12.4 g/dL (12.0-15.5); LYMPHOCYTES % (AUTO) 24.9 % (13-45); MEAN CORPUSCULAR HEMOGLOBIN 30.4 pg (27.0-33.4); MEAN CORPUSCULAR HGB CONC 33.6 g/dL (32.0-36.0); MEAN CORPUSCULAR VOLUME 91 fl (80-97); MONOCYTES % (AUTO) 7.2 % (3-13); PLATELET COUNT 303 10^3/uL (150-450); RED BLOOD COUNT 4.09 10^6/uL (3.72-5.28); SEGMENTED NEUTROPHILS % (AUTO) 64.7 % (42-78); TOTAL CELLS COUNTED % (AUTO) 100 %; WHITE BLOOD COUNT 7.8 10^3/uL (4.0-10.5)
[2019-05-20 01:40] LABS: ALBUMIN 4.1 g/dL (3.5-5.0); ALKALINE PHOSPHATASE 193 U/L (38-126); ANION GAP 9 (5-19); ASPARTATE AMINO TRANSFERASE 78 U/L (14-36); BILIRUBIN,DIRECT 0.2 mg/dL (0.0-0.4); BILIRUBIN,TOTAL 0.8 mg/dL (0.2-1.3); BLOOD UREA NITROGEN 11 mg/dL (7-20); CALCIUM 9.1 mg/dL (8.4-10.2); CARBON DIOXIDE 29 mmol/L (22-30); CHLORIDE 103 mmol/L (98-107); GLUCOSE 106 mg/dL (75-110); POTASSIUM 3.7 mmol/L (3.6-5.0); TOTAL PROTEIN 7.1 g/dL (6.3-8.2)
--- NOTE | 2019-05-20 03:41 | ER Document Report ---
ED General - General Chief Complaint: Abdominal Pain Stated Complaint: ABDOMINAL PAIN Time Seen by Provider: 05/20/19 03:22 Notes: Patient is a 58-year-old female that comes emergency department for chief complaint of pain in her epigastric area and also pain that radiates over to her right upper abdomen, into her right upper ribs, and sometimes around to the back. She also has frequent cough which is occasionally productive. She denies nausea, vomiting, abnormal bowel movements. She states that this is been going on for about a month, she states that she had an MRCP and an MRI of the thoracic spine on 05/13/2019 by her primary care, she states she was also told that her liver enzymes were too elevated. She has had a cholecystectomy previously, she also has a mechanical heart valve secondary to rheumatic fever as a child. She also had an endoscopy and colonoscopy within the past few weeks which she states were normal. TRAVEL OUTSIDE OF THE [place] IN LAST 30 DAYS: No - Related Data Allergies/Adverse Reactions: chlorhexidine Allergy (Verified 05/20/19 00:39) codeine [Codeine] Allergy (Verified 08/22/12 20:45) shrimp Allergy (Uncoded 05/09/13 23:54) Past Medical History - General Information source: Patient - Social History Smoking Status: Never Smoker Lives with: Family Family History: Reviewed & Not Pertinent Patient has suicidal ideation: No Patient has homicidal ideation: No - Past Medical History Cardiac Medical History: Reports: Hx Atrial Fibrillation, Hx Hypercholesterolemia, Hx Hypertension Endocrine Medical History: Reports: Hx Hypothyroidism Malignancy Medical History: Reports: Hx Breast Cancer - left Musculoskeletal Medical History: Reports Hx Musculoskeletal Trauma Traumatic Medical History: Reports: Hx Fractures Past Surgical History: Reports: Hx Breast Surgery - mystectomy and blood vessel replaced, Hx Cholecystectomy - Immunizations Immunizations up to date: Yes Hx Diphtheria, Pertussis, Tetanus Vaccination: Yes Review of Systems - Review of Systems Constitutional: No symptoms reported EENT: No symptoms reported Cardiovascular: See HPI Respiratory: See HPI Gastrointestinal: No symptoms reported Genitourinary: No symptoms reported Female Genitourinary: No symptoms reported Musculoskeletal: No symptoms reported Skin: No symptoms reported Hematologic/Lymphatic: No symptoms reported Neurological/Psychological: No symptoms reported Physical Exam - Vital signs Vitals: Temp Pulse Resp BP Pulse Ox 97.8 F 92 16 127/77 H 97 05/20/19 00:17 05/20/19 00:17 05/20/19 00:17 05/20/19 00:17 05/20/19 00:17 - Notes Notes: GENERAL: Patient restless, appears to be in pain HEAD: Normocephalic, atraumatic. EYES: Pupils equal, round, and reactive to light. Extraocular movements intact. ENT: Oral mucosa moist, tongue midline. Oropharynx unremarkable. Airway patent. NECK: Full range of motion. Supple. Trachea midline. LUNGS: Clear to auscultation bilaterally, no wheezes, rales, or rhonchi. Occasional coughing episodes. No overt tenderness to the chest wall. HEART: Regular rate and rhythm. No murmur ABDOMEN: Soft, non-tender. Non-distended. EXTREMITIES: Moves all 4 extremities spontaneously. No edema, normal radial and dorsalis pedis pulses bilaterally. No cyanosis. BACK: no cervical, thoracic, lumbar midline tenderness. No saddle anesthesia, normal distal neurovascular exam. Moves all extremities in full range of motion. NEUROLOGICAL: Alert and oriented x3. Normal speech. Cranial nerves II through XII grossly intact. PSYCH: Normal affect, normal mood. SKIN: Warm, dry, normal turgor. No rashes or lesions noted. Course - Re-evaluation Re-evalutation: Initially patient is very uncomfortable, has difficulty holding still, difficulty moving. Pain is over the right lower rib area. She also has intermittent coughing episodes. She reports pain and shortness of breath with this. She is not hypoxic or febrile. She is not tachycardic. EKG nonspecific, CBC, chemistry nonspecific. INR is subtherapeutic but patient is holding this pending her kyphoplasty for her compression fractures. Chest x-ray with possible borderline edema, troponin negative. I reevaluated patient. She is improved after morphine but still has some pain. She states that she is concerned because the pain has gotten so severe at times. She is subtherapeutic, has a history of cancer, has a cough, has questionable edema, and right-sided chest pain despite the back being her problem. Could be radiating symptoms but I discussed with patient at length and decision was made to perform CTA to rule out acute pathology for her severe pain. CT performed does show some vascular congestion, BNP added. Patient most likely needs incentive spirometry because she has not doing full inspiration because of her pain. In addition to this patient has paperwork with her from her director of alumni relations and primary care that is signed by her primary care, states that Dr. Cuellar had been contacted and if patient is subtherapeutic she is to be bridged using heparin instead of Lovenox in the hospital setting. Discussed with patient, will discuss with Dr. Cuellar. Discussed with Dr. Raphael. I spoke with Dr. Cuellar, he states that he will accept the patient, he does not recommend the patient be given bolus but simply started on the heparin drip. This was initiated. - Vital Signs Vital signs: Temp Pulse Resp BP Pulse Ox 97.8 F 92 17 117/71 97 05/20/19 00:31 05/20/19 00:31 05/20/19 06:02 05/20/19 06:02 05/20/19 06:02 - Laboratory Result Diagrams: 05/20/19 00:57 05/20/19 00:57 Laboratory results interpreted by me: 05/20/19 05/20/19 05/20/19 00:57 00:57 00:57 RDW 15.0 H PT AST 78 H Alkaline Phosphatase 193 H NT-Pro-B Natriuret Pep Urine Urobilinogen 2.0 H 05/20/19 05/20/19 03:40 05:52 RDW PT 17.0 H AST Alkaline Phosphatase NT-Pro-B Natriuret Pep 882 H Urine Urobilinogen Discharge - Discharge Clinical Impression: Subtherapeutic anticoagulation, Right-sided chest pain, Cough Condition: Stable Disposition: ADMITTED INPATIENT Admitting Provider: Alisa (Hospitalist) Unit Admitted: Telemetry
[2019-05-20 03:56] LABS: INTERNATIONAL RATION (INR) 1.37; PARTIAL THROMBOPLASTIN TIME 31.4 SEC (23.5-35.8)
--- NOTE | 2019-05-20 04:13 | RADIOLOGY REPORT (SQ) ---
Chest 2 view on 05/20/2019 at 3:52 AM CLINICAL INDICATION: Productive cough, right rib pain COMPARISON: 04/27/2019 FINDINGS: The patient is status post valve replacement. Multiple clips are noted in the left breast from likely a left lobectomy with clips in the left axilla from likely axillary node dissection. Heart is borderline in size. Vascular calcification is noted in the aorta. Hilar and mediastinal contours are within normal limits. Minimal increased interstitial changes may represent minimal developing edema. The lungs are otherwise clear. No bony abnormality is noted. IMPRESSION: Borderline size heart with minimal increased interstitial changes suggesting minimal edema.
--- NOTE | 2019-05-20 06:55 | RADIOLOGY REPORT (SQ) ---
EXAM DESCRIPTION: CT CHEST ANGIOGRAPHY WITHOUT THEN WITH IV CONTRAST COMPLETED DATE/TME: 05/20/2019 05:00 CLINICAL HISTORY: 58 years, Female, right sided rib pain, hx cancer, cough/SOB COMPARISON: 02/24/2019 TECHNIQUE: Axial CT images of the chest were obtained after the administration of IV contrast. MPR and MIP reconstructions were performed. DLP 528 Images stored on PACS. All CT scanners at this facility use dose modulation, iterative reconstruction, and/or weight based dosing when appropriate to reduce radiation dose to as low as reasonably achievable (ALARA). [facility]: Dose Right [facility]: CareDose [facility]: Dose Right [facility]: Teradose 4D [facility]: Perfect Channel LIMITATIONS: None. FINDINGS: No CT evidence of acute pulmonary embolism to the segmental branches. The thyroid gland is normal. The central airways are patent. There are mild atherosclerotic calcifications of the aorta. No evidence of an aortic dissection. There are changes of mitral valve replacement. No pericardial effusion. No mediastinal or hilar lymphadenopathy. There is no focal consolidation. There is mild interstitial edema. There is no pneumothorax or pleural effusion. There are no lytic or blastic bone lesions. There are mild chronic anterior wedge compression forming use of T7, T8, and L1. IMPRESSION: No CT evidence of acute pulmonary embolism. Mild interstitial pulmonary edema. TECHNICAL DOCUMENTATION: Quality ID # [id number]: Final reports with documentation of one or more dose reduction techniques (e.g., Automated exposure control, adjustment of the mA and/or kV according to patient size, use of iterative reconstruction technique) copyright 2010 [employer]- All Rights Reserved
--- NOTE | 2019-05-20 09:30 | EKG REPORT ---
SEVERITY:- BORDERLINE ECG - SINUS RHYTHM BORDERLINE T ABNORMALITIES, ANTERIOR LEADS BORDERLINE PROLONGED QT INTERVAL : Confirmed by: Sheela Aponte 20-May-2019 09:29:28
--- NOTE | 2019-05-20 09:30 | PDOC CONSULTATION ---
Consultation Consult Date: 05/20/19 Attending physician:: DEANDRE LINDSEY Provider Consulted: ITZEL BREWER History of Present Illness Admission Date/PCP: 05/20/19 07:54 HILDA HUBBARD MD History of Present Illness: JAMIL BENITEZ is a 58 year old female with a history of a mechanical mitral valve placed in 2014 who takes Coumadin at home who got a spinal compression fracture and was set up to get a kyphoplasty. She said her cloth bale header in [place], a Dr. Kay, told her that he wanted her on a heparin drip for bridging instead of Lovenox. Her primary care provider Dr. Barnes kept her off of her warfarin until her INR dropped down, and she is down at 1.37 today. She showed up in the ER with a letter from her primary care provider stating the patient's cloth bale header wishes. The patient does not understand why she has to do a heparin drip, because when she has been in a similar situation before she has done Lovenox bridging and not had to stay in the hospital for heparin drip. She does not have atrial fibrillation currently, but is on an antiarrhythmic to maintain sinus rhythm. She says that since she is got her valve placed she has not had any episodes of atrial fibrillation. She does not have heart failure. She only has the 1 mechanical valve, the mitral valve. She has never had a history of any serious bleeding episode, and no history of any GI bleeding of any sort. She has given herself Lovenox at home before. Past Medical History Cardiac Medical History: Reports: Atrial Fibrillation, Hyperlipidema, Hypertension Endocrine Medical History: Reports: Hypothyroidism Malignancy Medical History: Reports: Breast Cancer - left Past Surgical History Past Surgical History: Reports: Cholecystectomy Social History Lives with: Family Smoking Status: Never Smoker - Advance Directive Resuscitation Status: Full Code Family History Family History: Reviewed & Not Pertinent Parental Family History Reviewed: Yes Children Family History Reviewed: Yes Sibling(s) Family History Reviewed.: Yes Medication/Allergy Home Medications: Metoprolol Tartrate [Lopressor 25 mg Tablet] 12.5 mg PO Q12 #180 tablet 01/16/13 Dabigatran Etexilate Mesylate [Pradaxa 150 mg Capsule] 150 mg PO Q12 05/09/13 Omeprazole [Prilosec] 40 mg PO DAILY 12/10/13 Propafenone HCl 300 mg PO DAILY 05/09/13 Cephalexin Monohydrate [Keflex 500 mg Capsule] 500 mg PO QID #20 capsule 05/10/13 Oxycodone HCl [Oxy-Ir 5 mg Tablet] 5 mg PO Q4HP PRN #15 tab 05/10/13 Lidocaine [Lidoderm 5% (700 mg) Transdermal Patch] 1 patch TP DAILY #30 adh..patch 04/27/19 Enoxaparin Sodium [Lovenox Inj 80 mg/0.8 ml Disp.syrin] 80 mg SUBCUT Q12 #16 dis.syr 05/20/19 Allergies/Adverse Reactions: chlorhexidine Allergy (Verified 05/20/19 00:39) codeine [Codeine] Allergy (Verified 08/22/12 20:45) shrimp Allergy (Uncoded 05/09/13 23:54) Review of Systems All systems: reviewed and no additional remarkable complaints except as stated - All systems were reviewed and were negative except as noted in the HPI. Physical Exam Vital Signs: Temp Pulse Resp BP Pulse Ox 97.8 F 92 14 104/65 95 05/20/19 00:31 05/20/19 00:31 05/20/19 08:01 05/20/19 08:01 05/20/19 08:01 Intake & Output 05/19/19 05/20/19 05/21/19 06:59 06:59 06:59 Weight 77.5 kg General appearance: PRESENT: no acute distress, cooperative Head exam: PRESENT: atraumatic, normocephalic Eye exam: PRESENT: EOMI, PERRLA. ABSENT: conjunctival injection, nystagmus, scleral icterus Ear exam: PRESENT: normal external ear exam Mouth exam: PRESENT: moist, neck supple Throat exam: ABSENT: post pharyngeal erythema Neck exam: PRESENT: full ROM. ABSENT: carotid bruit, JVD, lymphadenopathy, meningismus, tenderness, thyromegaly Respiratory exam: PRESENT: clear to auscultation dajuan, symmetrical, unlabored. ABSENT: accessory muscle use, chest wall tenderness, crackles, prolonged expiratory phas, rhonchi, tachypnea, wheezes Cardiovascular exam: PRESENT: RRR, +S1, +S2, other - Clicking sound from mechanical valve Pulses: PRESENT: normal carotid pulses Vascular exam: PRESENT: normal capillary refill GI/Abdominal exam: PRESENT: normal bowel sounds, soft. ABSENT: distended, guarding, rebound, tenderness Extremities exam: ABSENT: clubbing, pedal edema Musculoskeletal exam: PRESENT: normal inspection. ABSENT: deformity Neurological exam: PRESENT: alert, awake, oriented to person, oriented to place, oriented to time, oriented to situation, CN II-XII grossly intact. ABSENT: motor sensory deficit Psychiatric exam: PRESENT: appropriate affect, normal mood Skin exam: PRESENT: dry, warm Results Laboratory Results: 05/20/19 00:57 05/20/19 00:57 05/20/19 05/20/19 05/20/19 00:57 00:57 00:57 WBC 7.8 RBC 4.09 Hgb 12.4 Hct 37.0 MCV 91 MCH 30.4 MCHC 33.6 RDW 15.0 H Plt Count 303 Seg Neutrophils % 64.7 Sodium 141.0 Potassium 3.7 Chloride 103 Carbon Dioxide 29 Anion Gap 9 BUN 11 Creatinine 0.77 Est GFR ( Amer) > 60 Glucose 106 Calcium 9.1 Total Bilirubin 0.8 AST 78 H Alkaline Phosphatase 193 H Total Protein 7.1 Albumin 4.1 Lipase 52.0 Urine Color YELLOW Urine Appearance CLEAR Urine pH 5.0 Ur Specific [place] 1.019 Urine Protein NEGATIVE Urine Glucose (UA) NEGATIVE Urine Ketones NEGATIVE Urine Blood NEGATIVE Urine Nitrite NEGATIVE Ur Leukocyte Esterase NEGATIVE Urine WBC (Auto) 3 Urine RBC (Auto) 1 05/20/19 05/20/19 05:22 05:52 Troponin I < 0.012 NT-Pro-B Natriuret Pep 882 H Impressions: Chest X-Ray 05/20/19 03:39 IMPRESSION: Borderline size heart with minimal increased interstitial changes suggesting minimal edema. Chest/Abdomen CTA 05/20/19 05:00 IMPRESSION: No CT evidence of acute pulmonary embolism. Mild interstitial pulmonary edema. TECHNICAL DOCUMENTATION: Quality ID # 436: Final reports with documentation of one or more dose reduction techniques (e.g., Automated exposure control, adjustment of the mA and/or kV according to patient size, use of iterative reconstruction technique) copyright 2011 [employer]- All Rights Reserved Assessment and Plan - Diagnosis (1) H/O mitral valve replacement with mechanical valve Is this a current diagnosis for this admission?: Yes Plan: I spoke with Dr. Hughes, the cloth bale header information broker. He said that the official recommendation in this situation is for heparin, but in common practice Lovenox is used regularly. He said the original studies that were done in this situation were done only using heparin. This patient has bridged in the past on Lovenox and has not had any problems, and so he recommended that if the patient was more comfortable doing Lovenox and that would be acceptable. The patient would rather do this than they staying in the hospital through [place]. She has given herself Lovenox shots before and is comfortable doing it at home, and she has a machine that monitors her INR. She will get a dose of Lovenox here in the emergency department, and I have sent a prescription for Lovenox to her pharmacy. The patient was very comfortable with this plan. I explained to her that because it was the official recommendation to use heparin, that we would be glad to keep her in the hospital and bridge her in that manner, but she immediately declined and elected to do Lovenox at home. - Time Time Spent with patient: 35 or more minutes Anticipated discharge: Home
[2019-05-20 09:49] VITALS: BP 103/59
== END | disposition home or self-care (01) ==
LOC: ER 00:10 → EH 07:54 → UNDOADMIN 07:54
DX: R07.9 Chest pain, unspecified (principal); R10.9 Unspecified abdominal pain; R10.13 Epigastric pain; R10.11 Right upper quadrant pain; R07.81 Pleurodynia; R05 Cough; I10 Essential (primary) hypertension; Z79.01 Long term (current) use of anticoagulants
CPT/HCPCS: 93005; 99285; 96372; 96374; 96375; 36415; 83690; 85025; 85610; 85730; 80053; 81001; 84484; 83880; 71046; 71275; 93010; J2270; J2405; J1650

== ENCOUNTER 2019-05-23 07:23 | Day surgery (SDC) | payer OTHER ==
[2019-05-23] MEDS ORDERED: LIDOCAINE 1% INJ-PF (10 MG/ML) 30 ML SDV ONE (07:58)
[2019-05-23] MEDS ORDERED: FENTANYL CITRATE INJ/PF 100 MCG/2 ML AMPUL ONE ×3 (08:06→09:55)
[2019-05-23] MEDS ORDERED: MIDAZOLAM HCL INJ 5 MG/1 ML VIAL ONE ×2 (08:06→09:46)
[2019-05-23 08:12] LABS: INTERNATIONAL RATION (INR) 1.17; PROTHROMBIN TIME 14.9 SEC (11.4-15.4)
[2019-05-23 08:13] LABS: PARTIAL THROMBOPLASTIN TIME 30.9 SEC (23.5-35.8)
[2019-05-23] MEDS ORDERED: BUPIVACAINE HCL 0.5 % INJ/PF 30 ML SDV ONE (08:23)
[2019-05-23] MEDS ORDERED: CEFAZOLIN INJ 1 GM VIAL ONE (09:00)
--- NOTE | 2019-05-23 11:32 | RADIOLOGY REPORT (SQ) ---
EXAM DESCRIPTION: FLUORO NEEDLE PLACEMENT COMPLETE DATE/TIME: 05/23/2019 11:06 am REASON FOR STUDY: T7/T8 FRACTURE FINDINGS: Please see combined report for performance of procedure and radiologic supervision and int erpretation. IMPRESSION: Please see combined report for performance of procedure and radiologic supervision and i nterpretation. Reading location - IP/workstation name: [email or web address]
--- NOTE | 2019-05-23 11:32 | RADIOLOGY REPORT (SQ) ---
EXAM DESCRIPTION: FLUORO NEEDLE PLACEMENT; KYPHOPLASTY/ADDITIONAL LEVEL; KYPHOPLASTY THORACIC COMPLETED DATE/TIME: 05/23/2019 11:06 am; 05/23/2019 11:15 am REASON FOR STUDY: T7/T8 FRACTURE COMPARISON: MRI dated 05/13/2019 FLUORO TIME: 10.9 minutes 30 Images saved to PACS. LIMITATIONS: None. PROCEDURE: After obtaining informed consent and explaining the risks and benefits of conscious sedat ion, the patient was brought to the special procedures suite and was placed prone on the fluoroscopy table. The patient was prepped and draped in the usual sterile fashion. IV sedation was administered and physician direction by the registered nurse using 7.0 milligrams of Versed and 225 micrograms of fentanyl. Physiologic monitoring was provided before, during, and after sedation. The total sedati on time was 45 minutes. Documentation face to face time, the performing proceduralist, spent monitoring the patient: 45minute s. The T7 and T8 vertebral bodies were identified fluoroscopically. Appropriate percutaneous access site s were selected and anesthetized with 1 percent lidocaine and bupivacaine. Using a bi-pedicular appro ach, kyphoplasty needles were advanced to the posterior wall of the vertebral body under fluoroscopic visualization. After confirming the position of the cannulas at the posterior wall of the vertebral body, beveled needles were inserted into the cannulas which were then advanced to the anterior 3rd o f the vertebral body under fluoroscopic visualization. Kyphoplasty balloons were advanced through the cannulas. The cannulas were pulled back to the posterior 3rd of the vertebral body. The balloons wer e inflated. Bone cement was mixed in the usual fashion. The balloons were deflated and removed. Nick ne cement was delivered into the cavities under fluoroscopic visualization. There was excellent fill ing of the cavities and no posterior extravasation of bone cement. Following delivery of cement, the needles were removed. The patient tolerated the procedure well and left the department in satisfact ory condition. IMPRESSION: Successful T7 and T8 kyphoplasty using fluoroscopic guidance. COMMENT: Patient medication list reviewed: Yes- Quality ID# 130:Eligible professional attests to doc umenting in the medical record they obtained, updated, or reviewed the patient's current medications. Quality ID #76: The patient was prepped and draped using maximum sterile barrier technique including cap, mask, sterile gown, sterile gloves, a large sterile sheet, hand hygiene, and 2% Chlorhexidine fo r cutaneous antisepsis. When ultrasound is used, sterile ultrasound techniques are followed requiring sterile gel and sterile probes. Quality ID 145: Final reports for procedures using fluoroscopy that document radiation exposure federica karely, or exposure time and number of fluorographic images (if radiation exposure indices are not avail able) TECHNICAL DOCUMENTATION: JOB ID: [id number] [employer]- All Rights Reserved rev-09/15 Reading location - IP/workstation name: [email or web address]
[2019-05-23 12:41] VITALS: BP 107/65
== END 2019-05-23 12:50 | disposition home or self-care (01) ==
LOC: CCL 07:23
PROVIDERS: ATTEND Nuclear Medicine
DX: S22.068A Other fracture of T7-T8 thoracic vertebra, initial encounter for closed fracture (principal); X58.XXXA Exposure to other specified factors, initial encounter; Y93.9 Activity, unspecified
CPT/HCPCS: 36415; 85610; 85730; 22513; 22515; 77002; C1713; J3490 ×2; J0690; J3010; J2250

== ENCOUNTER → 2019-06-22 | Outpatient (CLI) | payer OTHER ==
[2019-06-22 09:24] LABS: APPEARANCE,URINE CLEAR; BILIRUBIN,URINE NEGATIVE (NEGATIVE); COLOR,URINE YELLOW; GLUCOSE, URINE NEGATIVE (NEGATIVE); KETONES,URINE NEGATIVE (NEGATIVE); LEUKOCYTE ESTERASE,URINE NEGATIVE (NEGATIVE); NITRITE,URINE NEGATIVE (NEGATIVE); PROTEIN,URINE NEGATIVE (NEGATIVE); URINE SPECIFIC GRAVITY 1.014; UROBILINOGEN,URINE NEGATIVE mg/dL (<2.0)
--- NOTE | 2019-06-22 17:16 | RADIOLOGY REPORT (SQ) ---
EXAM DESCRIPTION: THORACOLUMBAR SPINE AP/LAT COMPLETED DATE/TIME: 06/22/2019 8:52 am REASON FOR STUDY: OTHER OSTEOPOROSIS R32 UNSPECIFIED URINARY INCONTINENCE mid back pain for 1 week. No reported injury. Previous kyphoplasty of the thoracic spine in April 2019. COMPARISON: Chest radiograph, 05/20/2019 NUMBER OF VIEWS: One view. TECHNIQUE: Standing AP and lateral exam of the thoracolumbar spine. LIMITATIONS: None. FINDINGS: Age-indeterminate mild compression deformity at L3 with sclerotic appearance appears to coffey ve been present on previous chest radiograph in April 2019, probably subacute to chronic. There i s moderate diffuse osteopenia. Kyphoplasty at T7 and T8. No acute fracture. Small marginal osteoph ytes. Mild degenerative disc disease. IMPRESSION: No radiographic evidence of acute fracture or dislocation of the lumbar spine. There is moderate osteopenia. Chronic compression deformity at L3. TECHNICAL DOCUMENTATION: JOB ID: [id number] [employer]- All Rights Reserved Reading location - IP/workstation name: [email or web address]
== END ==
LOC: OD 08:47
PROVIDERS: ATTEND Family Medicine
DX: M85.88 Other specified disorders of bone density and structure, other site (principal); M51.35 Other intervertebral disc degeneration, thoracolumbar region; R32 Unspecified urinary incontinence
CPT/HCPCS: 72080; 81001; 87086

== ENCOUNTER → 2019-06-27 | Outpatient (CLI) | payer OTHER | LOC: OD 15:36 | PROVIDERS: ATTEND Family Medicine | DX: M80.88XD Other osteoporosis with current pathological fracture, vertebra(e), subsequent encounter for fracture with routine healing (principal) | CPT/HCPCS: 36415; 82306; 83970; 86320 ==

== ENCOUNTER → 2019-06-30 | Outpatient (CLI) | payer OTHER ==
--- NOTE | 2019-07-01 12:42 | RADIOLOGY REPORT (SQ) ---
EXAM DESCRIPTION: MRI THORACIC SPINE WITHOUT COMPLETED DATE/TIME: 06/30/2019 4:45 pm REASON FOR STUDY: S22.070A WEDGE COMPRESSION FRACTURE OF T9-T10 VERTEBRA, INIT S32.000A WEDGE COMPR ESSION FRACTURE OF UNSP LUMBAR VERTEBRA, S22.070A WEDGE COMPRESSION FRACTURE OF T9-T10 VERTEBRA, INI T COMPARISON: 05/13/2019 TECHNIQUE: Sagittal and Axial imaging includes T1, T2, STIR and gradient echo sequences. LIMITATIONS: None. FINDINGS: LOCALIZER: No worrisome findings. ALIGNMENT: Normal. VERTEBRAE: There is a new anterior wedge compression fracture T10. Minimal loss of height. Edema al anni the superior endplate. No retropulsion. Treated compression fractures T7-T8. BONE MARROW: Normal. No marrow replacement or reactive changes. HARDWARE: None in the spine. CORD: Normal in size and signal intensity. SOFT TISSUES: No soft tissue masses. THORACIC DISCS T1-T12: No significant spinal stenosis or exit foraminal stenosis. LOWER CERVICAL: Incompletely imaged. No significant spinal stenosis or exit foraminal stenosis. UPPER LUMBAR: Incompletely imaged. No significant spinal stenosis or exit foraminal stenosis. OTHER: No other significant finding. IMPRESSION: New anterior wedge compression fracture T10 with minimal loss of height. No retropulsio n. Treated fractures T7-T8. TECHNICAL DOCUMENTATION: JOB ID: [id number] [employer]- All Rights Reserved Reading location - IP/workstation name: [email or web address]
--- NOTE | 2019-07-01 12:48 | RADIOLOGY REPORT (SQ) ---
EXAM DESCRIPTION: MRI LUMBAR SPINE WITHOUT COMPLETED DATE/TIME: 06/30/2019 4:45 pm REASON FOR STUDY: S32.000A WEDGE COMPRESSION FRACTURE OF UNSP LUMBAR VERTEBRA, INIT S32.000A WEDGE COMPRESSION FRACTURE OF UNSP LUMBAR VERTEBRA, S22.070A WEDGE COMPRESSION FRACTURE OF T9-T10 VERTEBRA , INIT COMPARISON: None. TECHNIQUE: Sagittal and Axial imaging includes T1, T2, STIR and gradient echo sequences. Coronal T2/ HASTE imaging. LIMITATIONS: None. FINDINGS: VISUALIZED UPPER ABDOMEN: Limited evaluation. No acute or suspicious findings suggested. SEGMENTATION: No transitional anatomy. The lowest well-developed disc space is labeled L5-S1. ALIGNMENT: Anatomic. VERTEBRAE: There are large Schmorl's node superior inferior at L2 with edematous changes. In effect, central compression fracture. BONE MARROW: Mild reactive changes L1-2, L4-5. DISC SIGNAL: Generalized loss of T2 signal. Loss of height L4-5. POSTERIOR ELEMENTS: Generally intact. No pars defect evident. HARDWARE: None in the spine. CORD AND CONUS: Normal in size and signal intensity. Conus at the appropriate level. SOFT TISSUES: No aortic aneurysm seen. No bulky retroperitoneal adenopathy or mass. No paraspinal mas s or fluid. L1-L2: No significant spinal stenosis or exit foraminal stenosis. L2-L3: No significant spinal stenosis or exit foraminal stenosis. Asymmetric leftward disc bulge. L3-L4: No significant spinal stenosis or exit foraminal stenosis. L4-L5: No significant spinal stenosis or exit foraminal stenosis. Diffuse degenerative disc. L5-S1: No significant spinal stenosis or exit foraminal stenosis. LOWER THORACIC: Incompletely imaged. No stenosis seen. SACRUM: Visualized upper sacrum intact. OTHER: No other significant findings. IMPRESSION: Superior and inferior central Schmorl's nodes at L2, with central loss of height and maryann ma. Central compression fracture. No significant spinal stenosis or exit foraminal stenosis. TECHNICAL DOCUMENTATION: JOB ID: [id number] [employer]- All Rights Reserved Reading location - IP/workstation name: [email or web address]
== END ==
LOC: RAD 15:26
PROVIDERS: ATTEND Family Medicine
DX: S32.000A Wedge compression fracture of unspecified lumbar vertebra, initial encounter for closed fracture (principal); S22.070A Wedge compression fracture of T9-T10 vertebra, initial encounter for closed fracture; X58.XXXA Exposure to other specified factors, initial encounter
CPT/HCPCS: 72146; 72148

== ENCOUNTER → 2019-08-25 | Outpatient (CLI) | payer OTHER ==
[2019-08-25 13:56] LABS: INTERNATIONAL RATION (INR) 2.08; PROTHROMBIN TIME 23.8 SEC (11.4-15.4)
[2019-08-25 13:58] LABS: ANION GAP 5 (5-19); BLOOD UREA NITROGEN 9 mg/dL (7-20); CALCIUM 9.7 mg/dL (8.4-10.2); CARBON DIOXIDE 33 mmol/L (22-30); CHLORIDE 99 mmol/L (98-107); GLUCOSE 95 mg/dL (75-110); POTASSIUM 4.3 mmol/L (3.6-5.0)
== END ==
LOC: OD 12:19
PROVIDERS: ATTEND Family Medicine
DX: R60.0 Localized edema (principal); Z79.01 Long term (current) use of anticoagulants
CPT/HCPCS: 36415; 80048; 85610

== ENCOUNTER → 2019-09-15 | Outpatient (CLI) | payer OTHER ==
[2019-09-15 15:31] LABS: ABSOLUTE EOSINOPHILS # (AUTO) 0.1 10^3/uL (0.0-0.6); ABSOLUTE LYMPHOCYTES (AUTO) 1.5 10^3/uL (0.5-4.7); ABSOLUTE MONOCYTES (AUTO) 0.5 10^3/uL (0.1-1.4); ABSOLUTE NEUT (AUTO) 5.9 10^3/uL (1.7-8.2); BASOPHILS % (AUTO) 0.5 % (0-2); EOSINOPHILS % (AUTO) 1.8 % (0-6); HEMATOCRIT 43.1 % (36.0-47.0); HEMOGLOBIN 14.5 g/dL (12.0-15.5); LYMPHOCYTES % (AUTO) 18.3 % (13-45); MEAN CORPUSCULAR HEMOGLOBIN 29.4 pg (27.0-33.4); MEAN CORPUSCULAR HGB CONC 33.7 g/dL (32.0-36.0); MEAN CORPUSCULAR VOLUME 87 fl (80-97); MONOCYTES % (AUTO) 5.7 % (3-13); PLATELET COUNT 293 10^3/uL (150-450); RED BLOOD COUNT 4.94 10^6/uL (3.72-5.28); RED CELL DISTRIBUTION WIDTH 14.8 % (11.5-14.0); SEGMENTED NEUTROPHILS % (AUTO) 73.7 % (42-78); TOTAL CELLS COUNTED % (AUTO) 100 %
[2019-09-15 15:58] LABS: ALBUMIN 4.4 g/dL (3.5-5.0); ALKALINE PHOSPHATASE 173 U/L (38-126); ANION GAP 5 (5-19); ASPARTATE AMINO TRANSFERASE 27 U/L (14-36); BILIRUBIN,TOTAL 0.6 mg/dL (0.2-1.3); BLOOD UREA NITROGEN 12 mg/dL (7-20); CALCIUM 9.5 mg/dL (8.4-10.2); CARBON DIOXIDE 33 mmol/L (22-30); CHLORIDE 98 mmol/L (98-107); CHOLESTEROL 179.59 mg/dL (0-200); GLUCOSE 96 mg/dL (75-110); POTASSIUM 4.2 mmol/L (3.6-5.0); TOTAL PROTEIN 7.3 g/dL (6.3-8.2); TRIGLYCERIDES 61 mg/dL (<150)
[2019-09-15 16:09] LABS: DIRECT LDL 111 mg/dL (<100)
[2019-09-15 16:10] LABS: ERYTHROCYTE SEDIMENTATION RATE 21 mm/hr (0-30)
[2019-09-15 16:11] LABS: FREE T3 4.13 pg/mL (2.77-5.27); FREE T4 (FREE THYROXINE) 1.37 ng/dL (0.78-2.19)
[2019-09-15 16:25] LABS: THYROID STIMULATING HORMONE 0.6 uIU/mL (0.47-4.68)
[2019-09-18 13:36] LABS: ALBUMIN URINE 31.4 % (.); ALPHA-1-GLOBULIN URINE 1.9 % (.); ALPHA-2-GLOBULIN UR 18.8 % (.); GAMMA GLOBULIN UR 19.2 % (.); M-SPIKE % URINE Not Observed % (Not Observ); PROTEIN TOTAL URINE 29.9 mg/dL (Not Estab.)
== END ==
LOC: OD 14:03
PROVIDERS: ATTEND Family Medicine
DX: M80.88XD Other osteoporosis with current pathological fracture, vertebra(e), subsequent encounter for fracture with routine healing (principal); X58.XXXD Exposure to other specified factors, subsequent encounter; E53.9 Vitamin B deficiency, unspecified; R74.0 Nonspecific elevation of levels of transaminase and lactic acid dehydrogenase [LDH]; E83.42 Hypomagnesemia; E16.2 Hypoglycemia, unspecified; E78.5 Hyperlipidemia, unspecified; E06.3 Autoimmune thyroiditis; Z79.01 Long term (current) use of anticoagulants; I50.21 Acute systolic (congestive) heart failure
CPT/HCPCS: 36415; 80053; 80061; 82306; 82607; 83036; 83735; 83880; 84156; 84166; 84439; 84443; 84481; 85025; 85652; 86038; 86320; 86335

== ENCOUNTER → 2019-11-02 | Outpatient (CLI) | payer OTHER ==
--- NOTE | 2019-11-02 12:30 | RADIOLOGY REPORT (SQ) ---
EXAM DESCRIPTION: CT CHEST WITH IMAGES COMPLETED DATE/TIME: 11/02/2019 10:40 am REASON FOR STUDY: MALIGNANT NEOPLASM OF MIDDLE LOBE, BRONCHUS OR LUNG C50.912 MALIGNANT NEOPLASM OF UNSPECIFIED SITE OF LEFT FEMAL COMPARISON: 05/20/2019 TECHNIQUE: CT scan of the chest performed using helical scanning technique with dynamic intravenous contrast injection. Images reviewed with lung, soft tissue and bone windows. Reconstructed coronal and sagittal MPR and MIP images reviewed. All images stored on PACS. All CT scanners at this facility use dose modulation, iterative reconstruction, and/or weight based d osing when appropriate to reduce radiation dose to as low as reasonably achievable (ALARA). [facility]: Dose Right [facility]: CareDose [facility]: Dose Right [facility]: Teradose 4D [facility]: KrowdPad CONTRAST TYPE AND DOSE: 86 cc Omnipaque 350- low osmolar. RENAL FUNCTION: Creatinine 0.7 RADIATION DOSE: CT Rad equipment meets quality standard of care and radiation dose reduction techniq ues were employed. CTDIvol: 5.1 - 12.7 mGy. DLP: 1420 mGy-cm. . LIMITATIONS: None. FINDINGS: LUNGS AND PLEURA: No opacities, nodules, masses. No pneumothorax. No effusions. HILAR AND MEDIASTINAL STRUCTURES: No identified masses or abnormal nodes. HEART AND VASCULAR STRUCTURES: No aneurysm or dissection. No central pulmonary emboli. No pericardi al effusion. HARDWARE: Heart valve. UPPER ABDOMEN: See separate report of the CT of the abdomen. THYROID AND OTHER SOFT TISSUES: No masses. No adenopathy. BONES: Mild compression changes in the midthoracic spine with kyphoplasty. OTHER: No other significant finding. IMPRESSION: There is no evidence of metastatic disease in the chest. Findings as described. TECHNICAL DOCUMENTATION: JOB ID: [id number] Quality ID # 436: Final reports with documentation of one or more dose reduction techniques (e.g., Au tomated exposure control, adjustment of the mA and/or kV according to patient size, use of iterative reconstruction technique) 2010 [employer]- All Rights Reserved Reading location - IP/workstation name: [email or web address]
--- NOTE | 2019-11-02 12:44 | RADIOLOGY REPORT (SQ) ---
EXAM DESCRIPTION: CT ABD/PELVIS WITH IV ORAL IMAGES COMPLETED DATE/TIME: 11/02/2019 10:40 am REASON FOR STUDY: MALIGNANT NEOPLASM OF MIDDLE LOBE, BRONCHUS OR LUNG C50.912 MALIGNANT NEOPLASM OF UNSPECIFIED SITE OF LEFT FEMAL COMPARISON: 01/07/2018 TECHNIQUE: CT scan of the abdomen and pelvis performed using helical scanning technique with dynamic intravenous contrast injection. Oral contrast. Images reviewed with lung, soft tissue, and bone win dows. Reconstructed coronal and sagittal MPR images reviewed. Delayed images for evaluation of the ur inary system also acquired. All images stored on PACS. All CT scanners at this facility use dose modulation, iterative reconstruction, and/or weight based d osing when appropriate to reduce radiation dose to as low as reasonably achievable (ALARA). [facility]: Dose Right [facility]: CareDose [facility]: Dose Right [facility]: Teradose 4D [facility]: Medical [employer] Systems CONTRAST TYPE AND DOSE: contrast/concentration: Isovue 350.00 mg/ml; Total Contrast Delivered: 86.0 ml; Total Saline Delivered: 69.0 ml RENAL FUNCTION: Creatinine 0.7 RADIATION DOSE: . LIMITATIONS: None. FINDINGS: LOWER CHEST: See separate report of the CT of the chest. LIVER: Normal size. No masses. No dilated ducts. SPLEEN: Normal size. No focal lesions. PANCREAS: No masses. No significant calcifications. No adjacent inflammation or peripancreatic fluid collections. Pancreatic duct not dilated. GALLBLADDER: No identified stones by CT criteria. No inflammatory changes to suggest cholecystitis. ADRENAL GLANDS: No significant masses or asymmetry. RIGHT KIDNEY AND URETER: No solid masses. No significant calcifications. No hydronephrosis or hyd roureter. LEFT KIDNEY AND URETER: No solid masses. No significant calcifications. No hydronephrosis or hydr oureter. AORTA AND VESSELS: No aneurysm. No dissection. Renal arteries, SMA, celiac without stenosis. RETROPERITONEUM: No retroperitoneal adenopathy, hemorrhage or masses. BOWEL AND PERITONEAL CAVITY: Mild sigmoid diverticulosis with no associated inflammatory changes. No obvious bowel mass. APPENDIX: Not identified. PELVIS: No mass. No free fluid. Normal bladder. ABDOMINAL WALL: No masses. No hernias. BONES: No significant or acute findings. OTHER: No other significant finding. IMPRESSION: There is no evidence of metastatic disease in the abdomen or pelvis. Mild diverticulosi s coli. TECHNICAL DOCUMENTATION: JOB ID: [id number] Quality ID # 436: Final reports with documentation of one or more dose reduction techniques (e.g., Au tomated exposure control, adjustment of the mA and/or kV according to patient size, use of iterative reconstruction technique) 2010 [employer]- All Rights Reserved Reading location - IP/workstation name: [email or web address]
== END ==
LOC: RAD 09:49
PROVIDERS: ATTEND Internal Medicine Hematology & Oncology
DX: C50.912 Malignant neoplasm of unspecified site of left female breast (principal)
CPT/HCPCS: 71260; 74177; 82565

== ENCOUNTER → 2019-11-06 | Outpatient (CLI) | payer OTHER ==
--- NOTE | 2019-11-06 13:44 | RADIOLOGY REPORT (SQ) ---
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 RADIONUCLIDE AND DOSE: 21.1 millicuries Tc99m MDP. The route of agent administration: Intravenous. ADDITIONAL DRUGS AND DOSES: None. TECHNIQUE: The patient was unable to lie flat due to severe pain and had to be imaged at a 45 angle . As a result spot planar images of the entire skeleton were obtained at 3 hours post injection of t he radionuclide. LIMITATIONS: See above. FINDINGS: BONES: No scintigraphic evidence of osseous metastases. The distribution of the uptake ar ound the shoulders and knees is typical of degenerative osteoarthrosis. KIDNEYS: Symmetric excretion without obstruction. OTHER: No other finding. IMPRESSION: No scintigraphic evidence of osseous metastases. COMMENT: Quality measure 147: Current bone scan is compared with any available plain radiographs, p rior bone scans, and CT/MRI. TECHNICAL DOCUMENTATION: JOB ID: [id number] 2010 [employer]- All Rights Reserved Reading location - IP/workstation name: [email or web address]
== END ==
LOC: RAD 09:00
PROVIDERS: ATTEND Internal Medicine Hematology & Oncology
DX: C50.912 Malignant neoplasm of unspecified site of left female breast (principal)
CPT/HCPCS: 78306; A9503; Q9969

== ENCOUNTER → 2019-11-16 | Outpatient (CLI) | payer OTHER ==
[2019-11-16 16:25] LABS: ABSOLUTE EOSINOPHILS # (AUTO) 0.2 10^3/uL (0.0-0.6); ABSOLUTE LYMPHOCYTES (AUTO) 1.8 10^3/uL (0.5-4.7); ABSOLUTE MONOCYTES (AUTO) 0.6 10^3/uL (0.1-1.4); ABSOLUTE NEUT (AUTO) 4.7 10^3/uL (1.7-8.2); BASOPHILS % (AUTO) 0.7 % (0-2); EOSINOPHILS % (AUTO) 2.7 % (0-6); HEMATOCRIT 43.7 % (36.0-47.0); HEMOGLOBIN 14.6 g/dL (12.0-15.5); LYMPHOCYTES % (AUTO) 24.3 % (13-45); MEAN CORPUSCULAR HEMOGLOBIN 29.4 pg (27.0-33.4); MEAN CORPUSCULAR HGB CONC 33.3 g/dL (32.0-36.0); MEAN CORPUSCULAR VOLUME 88 fl (80-97); MONOCYTES % (AUTO) 7.8 % (3-13); PLATELET COUNT 324 10^3/uL (150-450); RED BLOOD COUNT 4.96 10^6/uL (3.72-5.28); RED CELL DISTRIBUTION WIDTH 15.8 % (11.5-14.0); SEGMENTED NEUTROPHILS % (AUTO) 64.5 % (42-78); TOTAL CELLS COUNTED % (AUTO) 100 %; WHITE BLOOD COUNT 7.3 10^3/uL (4.0-10.5)
[2019-11-16 16:48] LABS: ALBUMIN 4.5 g/dL (3.5-5.0); ALKALINE PHOSPHATASE 172 U/L (38-126); ANION GAP 7 (5-19); ASPARTATE AMINO TRANSFERASE 33 U/L (14-36); BILIRUBIN,TOTAL 0.4 mg/dL (0.2-1.3); BLOOD UREA NITROGEN 11 mg/dL (7-20); CALCIUM 9.8 mg/dL (8.4-10.2); CARBON DIOXIDE 28 mmol/L (22-30); CHLORIDE 102 mmol/L (98-107); GLUCOSE 84 mg/dL (75-110); POTASSIUM 4.3 mmol/L (3.6-5.0); TOTAL PROTEIN 7.6 g/dL (6.3-8.2)
== END ==
LOC: OD 15:41
PROVIDERS: ATTEND Internal Medicine Hematology & Oncology
DX: D89.0 Polyclonal hypergammaglobulinemia (principal)
CPT/HCPCS: 36415; 80053; 82232; 82784; 83883; 85025; 86320

== ENCOUNTER → 2020-02-01 | Outpatient (CLI) | payer OTHER ==
--- NOTE | 2020-02-01 22:03 | XCELERA REPORT ---
[address] [address] Transthoracic Echocardiogram Report Name: JAMIL BENITEZ Age: 59 yrs Gender: Female : 1960 Patient Status: Outpatient Patient Location: Study Date: 02/01/2020 10:11 AM History: Mechanical MVR PAF Height: 66 in Weight: 168 lb BSA: 1.9 m2 Procedure: A complete two-dimensional transthoracic echocardiogram was performed (2D, M-mode, spectral and color flow Doppler). The study was technically difficult with many images being suboptimal in quality. Reason For Study: HEART FAILURE Previous Evaluation: A previous study was performed on 10/05/2017 LVEF 60%, MV 4 mm Hg at 77 bpm. History: Vascular surgeries/interventions: Mechanical MVR, Maze procedure. Shortness of breath. CHF. Ordering Physician: JOHN JAFFE Performed By: Jeannie Victoria Interpretation Summary Left ventricular systolic function is normal. The Ejection Fraction estimate is 55-60% The right ventricle is normal in size and function. There is a mechanical mitral valve. Demarco gradient 10.68 mm Hgbat 98 bpm. There is moderate calcium depostion at the annulus There is no aortic valve stenosis There is a trace amount of tricuspid regurgitation There is no pericardial effusion. MMode/2D Measurements & Calculations RVDd: 2.6 cm LVIDd: 3.9 cm FS: 35.7 % Ao root diam: 2.7 cm IVSd: 1.1 cm LVIDs: 2.5 cm EDV(Teich): 67.2 ml Ao root area: 5.7 cm2 LVPWd: 0.96 cm ESV(Teich): 22.9 ml EF(Teich): 65.9 % Doppler Measurements & Calculations MV V2 max: Ao V2 max: LV V1 max PG: PA V2 max: 247.9 cm/sec 130.8 cm/sec 4.2 mmHg 94.6 cm/sec MV max P.6 mmHg Ao max P.8 mmHg LV V1 max: PA max PG: MV V2 mean: 102.6 cm/sec 3.6 mmHg 149.5 cm/sec MV mean P.7 mmHg MV V2 VTI: 46.6 cm PI end-d john: 124.4 cm/sec Left Ventricle The left ventricle is normal in size. There is mild concentric left ventricular hypertrophy. Left ventricular systolic function is normal. The Ejection Fraction estimate is 55-60%. LV diastolic function not assessed. Right Ventricle The right ventricle is normal in size and function. Atria The right atrium is normal. The left atrial size is normal. The interatrial septum is intact with no evidence for an atrial septal defect. Mitral Valve There is a mechanical mitral valve. Demarco gradient 10.68 mm Hgbat 98 bpm. There is moderate calcium depostion at the annulus. The prosthetic mitral valve is well-seated. Cannot assess the presence or severity of regurgitation due to shielding from the prosthesis. Aortic Valve The aortic valve opens well. The aortic valve is not well visualized secondary to technical limitations. There is no aortic valve stenosis. No aortic regurgitation is present. Tricuspid Valve The tricuspid valve is not well visualized secondary to technical limitations. There is a trace amount of tricuspid regurgitation. Tricuspid regurgitation jet envelope not well defined to measure RV systolic pressure accurately. Pulmonic Valve The pulmonic valve is not well visualized. There is a trace amount of pulmonic regurgitation. Great Vessels The aortic root is normal size. The inferior vena cava appeared normal and decreased > 50% with respiration (RAP 5-10 mmHg). Effusions There is no pericardial effusion. : JOHN JAFFE Anil
== END ==
LOC: SP 11:00
PROVIDERS: ATTEND Internal Medicine
DX: I11.0 Hypertensive heart disease with heart failure (principal); I50.9 Heart failure, unspecified; Z95.2 Presence of prosthetic heart valve
CPT/HCPCS: 93306

== ENCOUNTER → 2020-02-13 | Outpatient (CLI) | payer OTHER ==
[2020-02-13 15:39] LABS: ABSOLUTE BASOPHILS # (AUTO) 0.1 10^3/uL (0.0-0.2); ABSOLUTE EOSINOPHILS # (AUTO) 0.1 10^3/uL (0.0-0.6); ABSOLUTE LYMPHOCYTES (AUTO) 1.4 10^3/uL (0.5-4.7); ABSOLUTE MONOCYTES (AUTO) 0.5 10^3/uL (0.1-1.4); ABSOLUTE NEUT (AUTO) 4.8 10^3/uL (1.7-8.2); BASOPHILS % (AUTO) 0.7 % (0-2); EOSINOPHILS % (AUTO) 1.5 % (0-6); HEMATOCRIT 39.7 % (36.0-47.0); HEMOGLOBIN 13.8 g/dL (12.0-15.5); LYMPHOCYTES % (AUTO) 20.7 % (13-45); MEAN CORPUSCULAR HEMOGLOBIN 29.9 pg (27.0-33.4); MEAN CORPUSCULAR HGB CONC 34.7 g/dL (32.0-36.0); MEAN CORPUSCULAR VOLUME 86 fl (80-97); MONOCYTES % (AUTO) 6.9 % (3-13); PLATELET COUNT 224 10^3/uL (150-450); RED BLOOD COUNT 4.62 10^6/uL (3.72-5.28); RED CELL DISTRIBUTION WIDTH 15.6 % (11.5-14.0); SEGMENTED NEUTROPHILS % (AUTO) 70.2 % (42-78); TOTAL CELLS COUNTED % (AUTO) 100 %; WHITE BLOOD COUNT 6.9 10^3/uL (4.0-10.5)
[2020-02-13 16:02] LABS: ALBUMIN 4.3 g/dL (3.5-5.0); ALKALINE PHOSPHATASE 128 U/L (38-126); ANION GAP 6 (5-19); ASPARTATE AMINO TRANSFERASE 32 U/L (14-36); BILIRUBIN,DIRECT 0.3 mg/dL (0.0-0.4); BILIRUBIN,TOTAL 0.6 mg/dL (0.2-1.3); BLOOD UREA NITROGEN 10 mg/dL (7-20); CALCIUM 9.7 mg/dL (8.4-10.2); CARBON DIOXIDE 28 mmol/L (22-30); CHLORIDE 103 mmol/L (98-107); CHOLESTEROL 179.89 mg/dL (0-200); GLUCOSE 89 mg/dL (75-110); TRIGLYCERIDES 60 mg/dL (<150)
[2020-02-13 16:19] LABS: FREE T4 (FREE THYROXINE) 1.19 ng/dL (0.78-2.19)
[2020-02-13 16:20] LABS: DIRECT LDL 106 mg/dL (<100)
[2020-02-13 16:33] LABS: THYROID STIMULATING HORMONE 0.79 uIU/mL (0.47-4.68)
[2020-02-15 07:07] LABS: THYROID PEROXIDASE (TPO) AB 157 IU/mL (0-34)
[2020-02-15 13:56] LABS: THYROGLOBULIN AB <1.0 IU/mL (0.0-0.9)
== END ==
LOC: OD 14:45
PROVIDERS: ATTEND Family Medicine
DX: M80.88XD Other osteoporosis with current pathological fracture, vertebra(e), subsequent encounter for fracture with routine healing (principal); E83.42 Hypomagnesemia; E78.5 Hyperlipidemia, unspecified; E06.3 Autoimmune thyroiditis; E53.9 Vitamin B deficiency, unspecified; E16.2 Hypoglycemia, unspecified; Z79.01 Long term (current) use of anticoagulants; Z79.899 Other long term (current) drug therapy
CPT/HCPCS: 36415; 80053; 80061; 82306; 82607; 83036; 83735; 83970; 84439; 84443; 84481; 85025; 86376; 86800

== ENCOUNTER → 2020-05-28 | Outpatient (CLI) | payer OTHER ==
--- NOTE | 2020-05-29 08:40 | RADIOLOGY REPORT (SQ) ---
EXAM DESCRIPTION: MRI THORACIC SPINE WITHOUT IMAGES COMPLETED DATE/TIME: 05/28/2020 7:01 pm REASON FOR STUDY: (M46.1)SACROILIITIS, NOT ELSEWHERE CLASSIFIED(S22.000A)WEDGE COMPRESSION FR S22.00 0A WEDGE COMPRESSION FRACTURE OF UNSP THORACIC VERTEBR M46.1 SACROILIITIS, NOT ELSEWHERE CLASSIFIED COMPARISON: 06/30/2019 TECHNIQUE: Sagittal and Axial imaging includes T1, T2, STIR and gradient echo sequences. LIMITATIONS: None. FINDINGS: LOCALIZER: No worrisome findings. ALIGNMENT: Slightly exaggerated thoracic kyphosis. VERTEBRAE: Multiple chronic wedge fractures. No acute fractures. Prior kyphoplasty at T7 and T8. BONE MARROW: Normal. No marrow replacement or reactive changes. HARDWARE: None in the spine. CORD: Normal in size and signal intensity. SOFT TISSUES: No soft tissue masses. THORACIC DISCS T1-T12: Multilevel disc degenerative disease. No focal herniation or high-grade centr al stenosis. LOWER CERVICAL: Incompletely imaged. No significant spinal stenosis or exit foraminal stenosis. UPPER LUMBAR: Incompletely imaged. No significant spinal stenosis or exit foraminal stenosis. OTHER: No other significant finding. IMPRESSION: 1. Multiple chronic compression fractures. No acute fracture deformities. 2. Multilevel disc degenerative disease. TECHNICAL DOCUMENTATION: JOB ID: [id number] [email or web address]- All Rights Reserved Reading location - IP/workstation name: [email or web address]
--- NOTE | 2020-05-29 14:20 | RADIOLOGY REPORT (SQ) ---
EXAM DESCRIPTION: MRI PELVIS WITHOUT IMAGES COMPLETED DATE/TIME: 05/28/2020 7:01 pm REASON FOR STUDY: (M46.1)SACROILIITIS, NOT ELSEWHERE CLASSIFIED S22.000A WEDGE COMPRESSION FRACTURE OF UNSP THORACIC VERTEBR M46.1 SACROILIITIS, NOT ELSEWHERE CLASSIFIED COMPARISON: None. TECHNIQUE: T1, inversion recovery weighted sequences of the lumbosacral spine without contrast. FINDINGS: There is no significant marrow abnormality. No evidence of insufficiency fracture or aggr essive bone lesion. No evidence of disc herniation. Facet arthropathy with reactive edema in the ri ght process at L5-S1. SI joints unremarkable. Pelvic floor contents unremarkable. IMPRESSION: No acute findings. Facet arthropathy. TECHNICAL DOCUMENTATION: JOB ID: [id number] 2010 [employer]- All Rights Reserved Reading location - IP/workstation name: [email or web address]
== END ==
LOC: RAD 17:20
PROVIDERS: ATTEND Family Medicine
DX: S22.000A Wedge compression fracture of unspecified thoracic vertebra, initial encounter for closed fracture (principal); X58.XXXA Exposure to other specified factors, initial encounter; M46.1 Sacroiliitis, not elsewhere classified
CPT/HCPCS: 72146; 72195

== ENCOUNTER → 2020-06-28 | Outpatient (CLI) | payer OTHER ==
[2020-06-28 16:59] LABS: ABSOLUTE EOSINOPHILS # (AUTO) 0.2 10^3/uL (0.0-0.6); ABSOLUTE LYMPHOCYTES (AUTO) 2.7 10^3/uL (0.5-4.7); ABSOLUTE MONOCYTES (AUTO) 0.5 10^3/uL (0.1-1.4); BASOPHILS % (AUTO) 0.4 % (0-2); EOSINOPHILS % (AUTO) 2.5 % (0-6); HEMATOCRIT 45.4 % (36.0-47.0); HEMOGLOBIN 14.9 g/dL (12.0-15.5); MEAN CORPUSCULAR HEMOGLOBIN 29.2 pg (27.0-33.4); MEAN CORPUSCULAR HGB CONC 32.9 g/dL (32.0-36.0); MEAN CORPUSCULAR VOLUME 89 fl (80-97); MONOCYTES % (AUTO) 7.1 % (3-13); PLATELET COUNT 242 10^3/uL (150-450); RED BLOOD COUNT 5.12 10^6/uL (3.72-5.28); RED CELL DISTRIBUTION WIDTH 15.8 % (11.5-14.0); TOTAL CELLS COUNTED % (AUTO) 100 %; WHITE BLOOD COUNT 7.4 10^3/uL (4.0-10.5)
[2020-06-28 17:28] LABS: ALBUMIN 4.4 g/dL (3.5-5.0); ALKALINE PHOSPHATASE 102 U/L (38-126); ANION GAP 5 (5-19); ASPARTATE AMINO TRANSFERASE 37 U/L (14-36); BILIRUBIN,DIRECT 0.2 mg/dL (0.0-0.4); BILIRUBIN,TOTAL 0.4 mg/dL (0.2-1.3); BLOOD UREA NITROGEN 14 mg/dL (7-20); CALCIUM 9.7 mg/dL (8.4-10.2); CARBON DIOXIDE 32 mmol/L (22-30); CHLORIDE 99 mmol/L (98-107); GLUCOSE 77 mg/dL (75-110); POTASSIUM 4.4 mmol/L (3.6-5.0); TOTAL PROTEIN 7.3 g/dL (6.3-8.2)
[2020-06-28 17:33] LABS: C-REACTIVE PROTEIN < 5.0 mg/L (<10.0)
[2020-06-28 17:37] LABS: ERYTHROCYTE SEDIMENTATION RATE 9 mm/hr (0-30)
[2020-06-28 17:39] LABS: FREE T4 (FREE THYROXINE) 1.26 ng/dL (0.78-2.19)
[2020-06-28 17:53] LABS: THYROID STIMULATING HORMONE 1.67 uIU/mL (0.47-4.68)
== END ==
LOC: OD 16:06
PROVIDERS: ATTEND Family Medicine
DX: M06.4 Inflammatory polyarthropathy (principal); M62.838 Other muscle spasm; E83.42 Hypomagnesemia; M45.9 Ankylosing spondylitis of unspecified sites in spine; E06.3 Autoimmune thyroiditis
CPT/HCPCS: 36415; 80053; 82390; 82552; 83520; 83735; 84439; 84443; 85025; 85652; 86038; 86140; 86200; 86225; 86431; 86812